=== PATIENT | male | born 1995 | race Caucasian/White ===

== ENCOUNTER 2020-07-01 16:04 | Outpatient (REF) | payer MEDICAID, SELFPAY ==
[2020-07-02 11:31] LABS: SARS COV2 PCR INHOUSE NEGATIVE (Negative)
== END 2020-07-01 16:05 | disposition home or self-care (01) ==
LOC: HO.LAB 16:04
PROVIDERS: Visit Provider Internal Medicine
DX: Z20.822 Contact with and (suspected) exposure to COVID-19 (principal)
CPT/HCPCS: C9803; U0003

== ENCOUNTER 2020-07-05 14:08 | Outpatient (REF) | payer MEDICAID, SELFPAY ==
[2020-07-06 11:22] LABS: SARS COV2 PCR INHOUSE POSITIVE (Negative)
== END 2020-07-05 14:09 | disposition home or self-care (01) ==
LOC: HO.LAB 14:08
PROVIDERS: Visit Provider Internal Medicine
DX: Z20.822 Contact with and (suspected) exposure to COVID-19 (principal)
CPT/HCPCS: C9803; U0003

== ENCOUNTER 2020-07-15 15:50 | Outpatient (REF) | payer MEDICAID, SELFPAY | END 2020-07-15 15:51 | disposition home or self-care (01) | LOC: HO.LAB 15:50 | PROVIDERS: Visit Provider Internal Medicine | DX: Z20.822 Contact with and (suspected) exposure to COVID-19 (principal) | CPT/HCPCS: C9803; U0003; U0005 ==

== ENCOUNTER 2021-01-26 14:08 | Outpatient (REF) | payer MEDICAID, SELFPAY ==
[2021-01-26 16:26] LABS: MANUAL DIFF FLAG NO
[2021-01-26 16:30] LABS: Basophils Percent Auto 0.5 % (0-2); Eosinophils Absolute Auto 0.3 X10*3/uL (0.0-0.4); Eosinophils Percent Auto 3.4 % (0-4); Hematocrit 44.8 % (42-52); Imm Gran Abs Auto 0.02 X10*3/uL (0.00-0.03); Imm Gran Pct Auto 0.2 % (0.0-0.4); Lymphocytes Absolute Auto 2.2 X10*3/uL (1.2-4.9); Lymphocytes Percent Auto 25.4 % (20-40); Mean Corpuscular HGB Conc 33.5 g/dl (31.0-36.0); Mean Corpuscular Hemoglobin 30.2 pg (27.0-33.0); Mean Corpuscular Volume 90.1 fL (80-98); Mean Platelet Volume 12.3 fL (9.4-12.4); Monocytes Absolute Auto 0.6 X10*3/uL (0.1-1.2); Monocytes Percent Auto 7.1 % (2-11); Neutrophils Absolute Auto 5.6 X10*3/uL (2.0-8.3); Neutrophils Percent Auto 63.4 % (45-73); Platelet Count 217 X10*3/uL (160-400); Red Blood Count 4.97 X10*6/uL (4.60-5.80); Red Cell Distribution Width 13.2 % (11.0-16.0); White Blood Count 8.8 X10*3/uL (4.8-10.8)
[2021-01-26 16:53] LABS: Anion Gap 12 (12-20); Blood Urea Nitrogen 11 mg/dL (9-16); Calcium 9.3 mg/dL (8.4-10.2); Carbon Dioxide 26 mmol/L (22-29); Chloride 106 mmol/L (96-108); Estimated Glomerular Filt Rate > 60; Glucose Fasting 78 mg/dL (60-99); Sodium 140 mmol/L (135-145)
[2021-01-26 17:17] LABS: TSH reflex Free T4 0.79 uIU/mL (0.32-4.0); Vitamin D 25-OH Total 13.4 ng/mL (>30)
[2021-01-26 17:27] LABS: Folate 15.9 ng/mL (> or = 4.0); Vitamin B12 430 pg/mL (200-900)
[2021-01-31 03:50] LABS: SARS COV2 IgG Negative (Negative)
== END 2021-01-26 14:09 | disposition home or self-care (01) ==
LOC: HO.HMGCLDS 14:08
PROVIDERS: PCP Internal Medicine; Visit Provider Internal Medicine
DX: G47.19 Other hypersomnia (principal); I10 Essential (primary) hypertension; R06.83 Snoring; Z86.16 Personal history of COVID-19
CPT/HCPCS: 36415; 80048; 82306; 82607; 82746; 84443; 85025; 86769

== ENCOUNTER 2021-08-05 07:31 | Emergency (ER) | payer MEDICAID, SELFPAY ==
[2021-08-05 07:52] VITALS: BP 124/59; PULSE 69; RESP 16; TEMP 37.4; O2SAT 97; BMI 27.3
--- NOTE | 2021-08-05 08:44 | ED_ITS ---
HPI - Nausea/Vomiting/Diarrhea General Chief complaint: Nausea/Vomiting/Diarrhea Stated complaint: Vomiting Time Seen by Provider: 08/05/21 08:38 History of Present Illness HPI Narrative: Patient is 25 years old presents today with having nausea vomiting generalized malaise. The symptom has been ongoing for the last 3 days. No cough, no congestion or upper respiratory symptoms. No diaphoresis. No diarrhea. No previous history of abdominal surgery. Positive abdominal pain mainly over the epigastric area. No radiation of the pain. Related Data Previous Rx's Medication Instructions Recorded cholecalciferol (vitamin D3) 1,250 1,250 mcg PO QWEEK 90 Days #13 tab 01/27/21 mcg (50,000 unit) tablet ondansetron 4 mg disintegrating 4 mg PO TID PRN 5 Days #10 tab 08/05/21 tablet Allergies Allergy/AdvReac Type Severity Reaction Status Date / Time No Known Allergies Allergy Verified 02/06/21 22:53 [No Known Allergies*] Review of Systems Review of Systems: Positive nausea vomiting Yes all other systems are reviewed and are negative PMFSH Past Medical History Attestation statement: The following information was validated with the patient. Medical History Cigarette smoker one half pack a day or less COVID-19 vaccination refused Excessive daytime sleepiness Excessive sleepiness while driving History of COVID-19 Snoring Family History Family History Father Substance use disorder HTN (hypertension) Paternal Grandfather Throat cancer Social History Social History Housing: Apartment Alcohol intake: former Patient Tobacco Use Status: Current everyday Tobacco user Cigarettes Per Day: 10 Years Smoked: 12 Advance Directives: No Advance Directives Information Provided: No service: No Current occupational status: unemployed Physical Exam Vital Signs: Vital Signs: Last Vital Signs Temp 99.3 F 08/05/21 07:52 Pulse 69 08/05/21 07:52 Resp 16 08/05/21 07:52 BP 124/59 L 08/05/21 07:52 Pulse Ox 97 08/05/21 07:52 BMI result Body Mass Index 27.3 Appearance: Alert. Oriented X3. No acute distress. Eyes: Pupils equal, round and reactive to light. ENT: Pharynx normal. Neck: Normal inspection. Neck supple. No lymph nodes noted. No crepitus CVS: Normal heart rate and rhythm. Pulses normal. Normal S1 and S2 Respiratory: No respiratory distress. Breath sounds normal. No Wheezing. No rales Abdomen: Soft and nontender. No rigidity. No distention. good BS x4 Skin: Skin warm and dry. Normal skin color. Normal skin turgor. Extremities: No lower extremity edema. Neurovascular intact to all extremities. No Lacerations. No Rash Neuro: Oriented X 3. No motor deficit. No sensory deficit. Moving all extermities. No slurred speech MDM - Nausea/Vomiting/Diarrhea MDM Narrative Medical decision making narrative: Positive nausea vomiting diarrhea. Symptom improved with treatment. Buffyfran was given emergency department repeat abdominal exam is soft nontender. Will discharge patient home. Currently in stable condition. [place] the risk of appendicitis is low given the repeat abdominal exam is soft. No right lower quadrant tenderness white count is normal. History not suggestive of obstruction as patient has no history of abdominal surgery past Medical Records Attestation: I reviewed the patient's medical records. Lab Data Attestation: I reviewed the patient's lab results. Result diagrams: 08/05/21 08:50 08/05/21 08:50 Labs: Lab Results 08/05/21 08/05/21 08/05/21 Range/Units 08:50 08:50 08:50 WBC 8.3 (4.8-10.8) X10*3/uL RBC 4.82 (4.60-5.80) X10*6/uL Hgb 14.3 (14.0-18.0) g/dl Hct 43.0 (42.0-52.0) % MCV 89.2 (80.0-98.0) fL MCH 29.7 (27.0-33.0) pg MCHC 33.3 (31.0-36.0) g/dl RDW 12.6 (11.0-16.0) % Plt Count 216 (160-400) X10*3/uL MPV 11.7 (9.4-12.4) fL Immature Gran % (Auto) 0.2 (0.0-0.4) % Neut % (Auto) 67.9 (45-73) % Lymph % (Auto) 24.1 (20-40) % Ashley % (Auto) 5.9 (2-11) % Eos % (Auto) 1.3 (0-4) % Baso % (Auto) 0.6 (0-2) % Lymph # (Auto) 2.0 (1.2-4.9) X10*3/uL Ashley # (Auto) 0.5 (0.1-1.2) X10*3/uL Eos # (Auto) 0.1 (0.0-0.4) X10*3/uL Baso # (Auto) 0.1 (0.0-0.2) X10*3/uL Abs Immat Gran (auto) 0.02 (0.00-0.03) X10*3/uL Absolute Neuts (auto) 5.6 (2.0-8.3) x10*3/uL Absolute Nucleated RBC 0.000 (0.0-0.012) X10*3/uL Nucleated RBC % (auto) 0.0 (0.0-0.2) /100WBC Sodium 139 (135-145) mmol/L Potassium 3.8 (3.3-5.1) mmol/L Chloride 108 (96-108) mmol/L Carbon Dioxide 25 (22-29) mmol/L Anion Gap 10 L (12-20) BUN 10 (9-16) mg/dL Creatinine 0.84 (0.5-1.4) mg/dL Estim Creat Clear Calc 128.9 Estimated GFR > 60 Random Glucose 106 (60-115) mg/dL Calcium 9.4 (8.4-10.2) mg/dL Total Bilirubin 0.2 (0.0-1.0) mg/dL Direct Bilirubin < 0.2 (0.0-0.5) mg/dL AST 17 (5-37) U/L ALT 17 (0-40) U/L Alkaline Phosphatase 64 (39-117) U/L Total Protein 7.4 (6.5-8.0) g/dL Albumin 4.0 (3.5-5.0) g/dL Lipase 24 (8-78) U/L Urine Color Urine Appearance Urine pH (5.0-8.0) Ur Specific [place] (1.005-1.025) Urine Protein (NEG-TRACE) MG/DL Urine Glucose (UA) (NEG) MG/DL Urine Ketones (NEG) MG/DL Urine Blood (NEG) Urine Nitrite (NEG) Ur Leukocyte Esterase (NEG) COVID-19 (KAYLYNN) Negative (Negative) COVID-19 Clin Com See Note 08/05/21 Range/Units 09:06 WBC (4.8-10.8) X10*3/uL RBC (4.60-5.80) X10*6/uL Hgb (14.0-18.0) g/dl Hct (42.0-52.0) % MCV (80.0-98.0) fL MCH (27.0-33.0) pg MCHC (31.0-36.0) g/dl RDW (11.0-16.0) % Plt Count (160-400) X10*3/uL MPV (9.4-12.4) fL Immature Gran % (Auto) (0.0-0.4) % Neut % (Auto) (45-73) % Lymph % (Auto) (20-40) % Ashley % (Auto) (2-11) % Eos % (Auto) (0-4) % Baso % (Auto) (0-2) % Lymph # (Auto) (1.2-4.9) X10*3/uL Ashley # (Auto) (0.1-1.2) X10*3/uL Eos # (Auto) (0.0-0.4) X10*3/uL Baso # (Auto) (0.0-0.2) X10*3/uL Abs Immat Gran (auto) (0.00-0.03) X10*3/uL Absolute Neuts (auto) (2.0-8.3) x10*3/uL Absolute Nucleated RBC (0.0-0.012) X10*3/uL Nucleated RBC % (auto) (0.0-0.2) /100WBC Sodium (135-145) mmol/L Potassium (3.3-5.1) mmol/L Chloride (96-108) mmol/L Carbon Dioxide (22-29) mmol/L Anion Gap (12-20) BUN (9-16) mg/dL Creatinine (0.5-1.4) mg/dL Estim Creat Clear Calc Estimated GFR Random Glucose (60-115) mg/dL Calcium (8.4-10.2) mg/dL Total Bilirubin (0.0-1.0) mg/dL Direct Bilirubin (0.0-0.5) mg/dL AST (5-37) U/L ALT (0-40) U/L Alkaline Phosphatase (39-117) U/L Total Protein (6.5-8.0) g/dL Albumin (3.5-5.0) g/dL Lipase (8-78) U/L Urine Color YELLOW Urine Appearance CLEAR Urine pH 6.0 (5.0-8.0) Ur Specific [place] 1.020 (1.005-1.025) Urine Protein NEG (NEG-TRACE) MG/DL Urine Glucose (UA) NEG (NEG) MG/DL Urine Ketones NEG (NEG) MG/DL Urine Blood NEG (NEG) Urine Nitrite NEG (NEG) Ur Leukocyte Esterase NEG (NEG) COVID-19 (KAYLYNN) (Negative) COVID-19 Clin Com Discharge Plan Discharge Clinical Impression: Vomiting Patient Disposition: Home, Self-Care Instructions: Acute Nausea and Vomiting (ED) Prescriptions: New ondansetron 4 mg tablet,disintegrating 4 mg PO TID PRN (Reason: nausea and vomiting) 5 Days Qty: 10 0RF No Action cholecalciferol (vitamin D3) 1,250 mcg (50,000 unit) tablet 1,250 mcg PO QWEEK 90 Days Qty: 13 0RF Referrals: Ambar Underwood MD [Primary Care Provider] - Stand Alone Forms: Work/School Release
[2021-08-05 08:55] LABS: MANUAL DIFF FLAG NO
[2021-08-05 09:00] LABS: Basophils Absolute Auto 0.1 X10*3/uL (0.0-0.2); Basophils Percent Auto 0.6 % (0-2); Eosinophils Absolute Auto 0.1 X10*3/uL (0.0-0.4); Eosinophils Percent Auto 1.3 % (0-4); Hemoglobin 14.3 g/dl (14.0-18.0); Imm Gran Abs Auto 0.02 X10*3/uL (0.00-0.03); Imm Gran Pct Auto 0.2 % (0.0-0.4); Lymphocytes Percent Auto 24.1 % (20-40); Mean Corpuscular HGB Conc 33.3 g/dl (31.0-36.0); Mean Corpuscular Hemoglobin 29.7 pg (27.0-33.0); Mean Corpuscular Volume 89.2 fL (80.0-98.0); Mean Platelet Volume 11.7 fL (9.4-12.4); Monocytes Absolute Auto 0.5 X10*3/uL (0.1-1.2); Monocytes Percent Auto 5.9 % (2-11); Neutrophils Absolute Auto 5.6 x10*3/uL (2.0-8.3); Neutrophils Percent Auto 67.9 % (45-73); Platelet Count 216 X10*3/uL (160-400); Red Blood Count 4.82 X10*6/uL (4.60-5.80); Red Cell Distribution Width 12.6 % (11.0-16.0); White Blood Count 8.3 X10*3/uL (4.8-10.8)
[2021-08-05] MEDS: ondansetron HCL 4 MG/2 ML VIAL IVPUSH (09:02)
[2021-08-05] MEDS: 0.9 % Sodium Chloride 1,000 ML 999 ML IV (09:02)
[2021-08-05 09:16] LABS: Alanine Aminotransferase 17 U/L (0-40); Alkaline Phosphatase 64 U/L (39-117); Anion Gap 10 (12-20); Aspartate Amino Transferase 17 U/L (5-37); Bilirubin Direct < 0.2 mg/dL (0.0-0.5); Bilirubin Total 0.2 mg/dL (0.0-1.0); Blood Urea Nitrogen 10 mg/dL (9-16); Calcium 9.4 mg/dL (8.4-10.2); Carbon Dioxide 25 mmol/L (22-29); Chloride 108 mmol/L (96-108); Creatinine Clr Calc Pharmacy 128.9; Estimated Glomerular Filt Rate > 60; Glucose Random 106 mg/dL (60-115); Lipase 24 U/L (8-78); Potassium 3.8 mmol/L (3.3-5.1); Sodium 139 mmol/L (135-145); Total Protein 7.4 g/dL (6.5-8.0)
[2021-08-05 09:21] LABS: Appearance Urine CLEAR; Color Urine YELLOW; Glucose Urine UA NEG (NEG); Leukocyte Esterase Urine NEG (NEG); Nitrite Urine NEG (NEG); Urine Blood NEG (NEG); Urine Ketones NEG (NEG); Urine Protein NEG (NEG-TRACE)
[2021-08-05 09:22] LABS: COVID-19 Test Negative (Negative)
== END 2021-08-05 10:20 | disposition home or self-care (01) ==
PROVIDERS: Emergency Provider Emergency Medicine Emergency Medical Services; PCP Internal Medicine
DX: R11.10 Vomiting, unspecified (principal); F17.210 Nicotine dependence, cigarettes, uncomplicated; Z20.822 Contact with and (suspected) exposure to COVID-19
CPT/HCPCS: 36415; 80048; 80076; 81003; 83690; 85025; 87635; 96361; 96374; 99284; J2405

== ENCOUNTER 2022-06-29 07:30 | Emergency (ER) | payer MEDICAID, SELFPAY ==
[2022-06-29 07:43] VITALS: BP 131/70; PULSE 75; RESP 116; TEMP 36.8; O2SAT 98; BMI 26.6
[2022-06-29 08:10] LABS: IDNOW Serial# 08D9AD1C; Strep A Nucleic Acid Negative (Negative)
[2022-06-29 08:12] LABS: COVID-19 Test Negative (Negative); IDNOW Serial# BCCEAD1C
--- NOTE | 2022-06-29 08:31 | ED_ITS ---
HPI - General Adult General Chief complaint: Upper Respiratory Symptoms Stated complaint: sore throat Time Seen by Provider: 06/29/22 08:02 Source: patient Mode of arrival: ambulatory Limitations: no limitations History of Present Illness HPI narrative: 26-year-old male presents with sore throat. Symptoms started 3-4 days ago. Describes symptoms as severe. They are worse with swelling. Denies any difficulty breathing. He feels the gland on his left side of his neck. Pain is mostly left-sided does not radiate. He has had no fevers or chills. No cough or mucus production. No runny nose. Related Data Previous Rx's Medication Instructions Recorded cholecalciferol (vitamin D3) 1,250 1,250 mcg PO QWEEK 90 days #13 tabs 01/27/21 mcg (50,000 unit) tablet ondansetron 4 mg disintegrating 4 mg PO TID PRN nausea and 08/05/21 tablet vomiting 5 days #10 tabs amoxicillin 875 mg tablet 875 mg PO Q12H #20 tabs 06/29/22 Allergies Allergy/AdvReac Type Severity Reaction Status Date / Time No Known Allergies Allergy Verified 02/06/21 22:53 [No Known Allergies*] [facility] Past Medical History Medical History Cigarette smoker one half pack a day or less COVID-19 vaccination refused Excessive daytime sleepiness Excessive sleepiness while driving History of COVID-19 Snoring Family History Family History Father Substance use disorder HTN (hypertension) Paternal Grandfather Throat cancer Social History Social History Housing: Apartment Alcohol intake: former Patient Tobacco Use Status: Current everyday Tobacco user Cigarettes Per Day: 10 Years Smoked: 12 Advance Directives: No service: No Current occupational status: unemployed Physical Exam ED Vital Signs: Vital Signs - 24 hr 06/29/22 07:43 Temperature 98.2 F Pulse Rate 75 Respiratory Rate 116 H Blood Pressure 131/70 Pulse Oximetry 98 Oxygen Delivery Method Room Air BMI result Body Mass Index 26.6 GEN: Well developed, no acute distress, alert, oriented HEENT: Normocephalic, atraumatic, normal external ears, nose appears normal, edematous and erythematous changes to the oropharynx. There is no tonsillar enlargement or exudate Eyes: Normal to appearance Neck: Supple, scattered left-sided sub cm anterior neck lymphadenopathy Respiratory: Talks in complete sentences, no respiratory distress, clear to auscultation bilaterally Cardiovascular: Regular rate and rhythm, no murmurs rubs or gallops Abdomen: Soft, nontender, nondistended, no guarding, no rebound Back: No CVA tenderness Extremities: No clubbing cyanosis or edema Neurologic: No focal neurologic deficits, cranial nerves 2-12 intact, strength is 5/5 bilaterally, gait normal Skin: No rash Course Course Course Narrative: 26-year-old male presents with sore throat. No has no other significant symptoms. Most likely diagnosis is strep pharyngitis. Will obtain throat culture, start antibiotics. Analgesics as needed. Medical Decision Making Medical Decision Making [facility] Narrative: 26-year-old male with no history of immunocompromise status, he is nontoxic appearing. Appears euvolemic. There is no evidence intravenous trismus or airway compromise. He is able to tolerate oral intake. His history is most likely suspicious for acute strep pharyngitis. Doubt peritonsillar abscess, retropharyngeal abscess, Brandt's angina, epiglottitis, tracheitis, EBV or HIV. Will treat patient with oral antibiotics and follow up as needed. Differential Diagnosis Differential Diagnoses: The differential diagnosis associated with the presentation includes (Strep throat, viral pharyngitis, EBV, HIV, tracheitis, epiglottitis, RPA, AMUSEMENT OR RECREATION CARD CHECKER) Lab Data [facility] Lab Attestation statement: I reviewed the patient's lab results. Labs: Lab Results 06/29/22 06/29/22 Range/Units 07:52 07:52 COVID-19 (AKYLYNN) Negative (Negative) COVID-19 Clin Com See Note S. pyogenes GrpA SANTI Negative (Negative) Tests considered The following testing was considered but not selected: CT neck Prescription Management I considered prescription management with: Pain Medication and Antibiotic Discharge Plan Discharge Clinical Impression: Pharyngitis Patient Disposition: Home, Self-Care Instructions: Pharyngitis (ED) Prescriptions: New amoxicillin 875 mg tablet 875 mg PO Q12H Qty: 20 0RF No Action cholecalciferol (vitamin D3) 1,250 mcg (50,000 unit) tablet 1,250 mcg PO QWEEK 90 Days Qty: 13 0RF ondansetron 4 mg tablet,disintegrating 4 mg PO TID PRN (Reason: nausea and vomiting) 5 Days Qty: 10 0RF Referrals: Ambar Underwood MD [Primary Care Provider] - 3 days
[2022-06-29 08:41] VITALS: BP 123/59; PULSE 72; RESP 16; O2SAT 98
[2022-06-29] MEDS: Amoxicillin 500 MG CAPSULE PO (08:57)
== END 2022-06-29 09:04 | disposition home or self-care (01) ==
PROVIDERS: Emergency Provider Emergency Medicine; PCP Internal Medicine
DX: J02.9 Acute pharyngitis, unspecified (principal); Z20.822 Contact with and (suspected) exposure to COVID-19; Z20.828 Contact with and (suspected) exposure to other viral communicable diseases; Z79.899 Other long term (current) drug therapy
CPT/HCPCS: 87635; 87651; 99283

== ENCOUNTER 2022-06-29 21:24 | Emergency (ER) | payer MEDICAID, SELFPAY ==
[2022-06-29 21:26] VITALS: BP 118/69; PULSE 85; RESP 18; TEMP 37.6; O2SAT 95; BMI 26.4
--- NOTE | 2022-06-29 23:03 | PC.NURSE ---
called to [facility], no answer
== END 2022-06-29 23:57 | disposition left against medical advice (07) ==
PROVIDERS: Emergency Provider Emergency Medicine; PCP Internal Medicine
DX: J02.9 Acute pharyngitis, unspecified (principal)
CPT/HCPCS: 99281

== ENCOUNTER 2022-07-01 06:53 | Observation (INO) | payer MEDICAID, SELFPAY ==
--- NOTE | ~2022-07-01 | CT_ITS ---
EXAMINATION: CT SOFT TISSUE NECK WITH CONTRAST CLINICAL INFORMATION: Rule out left peritonsillar abscess COMPARISON: None. TECHNIQUE: Following the administration of 60 mL of Omnipaque 350 intravenous contrast, helical imaging was performed in the axial plane with generation of coronal and sagittal reformatted images. This CT examination was performed using dose optimization techniques as appropriate, variously including the following: *Automated exposure control. *Adjustment of mA and/or kV according to patient size (this includes techniques or standardized protocols for targeted exams where dose is matched to indication/reason for exam; i.e. extremities or head). *Use of iterative reconstruction technique. DLP: 695.86 mGy-cm mGy-cm. FINDINGS: Nasopharynx/skull base: The fat planes of the skull base and soft tissues of the nasopharynx are unremarkable. The paranasal sinuses and mastoid air cells are well aerated. The temporomandibular joints are normal. Suprahyoid neck: The oral cavity and bilateral salivary gland tissues are unremarkable. There is enlargement and hypodensity of the superior left palatine tonsil with edema extending to involve the left lateral nasopharyngeal wall, left lateral oropharyngeal wall, epiglottis, and left aryepiglottic fold with effacement of the left piriform sinus. There is rightward deviation of the oropharyngeal airway which is mildly narrowed. No discrete rim-enhancing fluid density collection is identified to suggest a well-formed tonsillar or peritonsillar abscess. Infrahyoid neck: The hypopharynx and larynx are unremarkable. There is a subcentimeter collection of gas along the right tracheoesophageal groove at the level of thoracic inlet, likely representing a tracheal diverticulum. No aerodigestive tract mass. Thyroid: The thyroid gland is normal. Lymph nodes: There is no cervical chain lymphadenopathy. Prominent but nonpathologically enlarged bilateral cervical lymph nodes are likely reactive. Lung apices: The partially visualized lung apices are clear. Vascular structures: No hemodynamically significant stenosis, dissection, or occlusion. Osseous structures: The osseous structures are intact without suspicious focal lesion. Mild degenerative disc disease with endplate osteophytosis at multiple levels, most notably C6-C7. Other: The imaged portions of the brain parenchyma are unremarkable. CT/CT soft tissue neck w IV con IMPRESSION: 1. Enlargement and hypodensity of the left palatine tonsil with extensive mucosal edema extending throughout the left pharynx and involving the epiglottis and left aryepiglottic fold. Rightward deviation of the oropharyngeal airway which is mildly narrowed. No discrete rim-enhancing fluid density collection is identified to suggest a drainable tonsillar or peritonsillar abscess. Hypodensity within the left palatine tonsil may reflect edema and/or phlegmon/developing abscess. 2. 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
[2022-07-01 07:19] VITALS: BP 139/73; PULSE 81; RESP 16; TEMP 37.1; O2SAT 98; BMI 26.4
--- NOTE | 2022-07-01 08:17 | ED.URI ---
HPI - URI/Sore Throat General Chief Complaint: Upper Respiratory Symptoms Stated Complaint: Sore throat Time Seen by Provider: 07/01/22 08:06 Source: patient Mode of arrival: ambulatory Limitations: no limitations History of Present Illness HPI Narrative: 26-year-old male with history of tobacco smoking who presents to the ER with complaints of 4 days of sore throat. Seen here on June 29 and had COVID and strep testing which were negative. Diagnosis pharyngitis and sent home on amoxicillin. Patient reports he has taken 2 doses of amoxicillin. Last night he developed a fever of 101 with increased difficulty swallowing and sore throat. MD elicited complaint: fever and sore throat Related Data Previous Rx's Medication Instructions Recorded amoxicillin 875 mg tablet 875 mg PO Q12H #20 tabs 06/29/22 Allergies Allergy/AdvReac Type Severity Reaction Status Date / Time No Known Allergies Allergy Verified 02/06/21 22:53 [No Known Allergies*] Review of Systems Review of Systems: Yes all other systems are reviewed and are negative Constitutional: Constitutional: Reports no additional constitutional complaints, Denies body ache(s), Denies chills, Reports fever(s), Denies headache(s) and Denies weakness Eyes: Eyes: Reports no additional eye complaints and Denies change in vision ENT: Reports system reviewed and no additional complaints, except as documented, Denies dizziness, Denies headache(s), Denies nasal congestion, Denies nasal discharge, Denies neck pain and Reports sore throat Cardiovascular: Cardiovascular: Reports no additional cardiovascular complaints, Denies chest pain, Denies leg edema and Denies dyspnea Respiratory: Respiratory: Reports no additional respiratory complaints, Denies cough and Denies dyspnea Gastrointestinal: Gastrointestinal: Reports no additional gastrointestinal complaints, Denies abdominal pain, Denies diarrhea, Denies nausea and Denies vomiting Genitourinary: Genitourinary: Denies urinary incontinence Musculoskeletal: Musculoskeletal: Reports no additional musculoskeletal complaints, Denies back pain, Denies arthralgias, Denies joint swelling, Denies neck pain, Denies numbness and Denies tingling Integumentary/Breasts: Skin/Breast: Reports system reviewed and no additional complaints, except as docu and Denies rash Neurologic: Reports system reviewed and no additional complaints, except as documented, Denies Abnormal speech present, Denies dizziness, Denies headache(s), Denies numbness, Denies tingling and Denies weakness [facility] Past Medical History Attestation statement: The following information was validated with the patient. Source: old records reviewed and nursing notes reviewed Medical History Cigarette smoker one half pack a day or less COVID-19 vaccination refused Excessive daytime sleepiness Excessive sleepiness while driving History of COVID-19 Snoring Family History Family History Father Substance use disorder HTN (hypertension) Paternal Grandfather Throat cancer Social History Social History Housing: Apartment Alcohol intake: former Patient Tobacco Use Status: Current everyday Tobacco user Cigarettes Per Day: 10 Years Smoked: 12 Advance Directives: No Advance Directives Information Provided: No service: No Current occupational status: unemployed Physical Exam Vital Signs: Vital Signs: Last Vital Signs Temp 98.7 F 07/01/22 07:19 Pulse 72 07/01/22 11:38 Resp 16 07/01/22 11:38 BP 119/53 L 07/01/22 11:38 Pulse Ox 99 07/01/22 11:38 O2 Del Method Room Air 07/01/22 11:38 BMI result Body Mass Index 26.4 Const: General: cooperative, healthy appearing, comfortable and no acute distress Orientation/consciousness: patient oriented x3 Limitations: no limitations HEENT: Other: Patient tolerating secretions with no difficulty, no trismus Head: Yes normal to inspection Ears: hearing grossly normal bilaterally and TM's normal bilaterally General nose exam: Normal external nose present Face and sinus: Yes normal facial exam Mouth: Normal oral and palatal mucosa present Throat: Yes posterior oropharynx normal, Yes uvula midline and Yes other (Bilateral tonsillar erythema, exudate, swelling left greater than right) Eyes: General: appearance normal, both eyes and all related structures Pupils: Equal, round and reactive pupils present Neck: Neck: Yes normal visual inspection, Yes full ROM, Yes no lymphadenopathy and Yes no meningeal signs Chest: Chest palpation & inspection: normal inspection of the chest Resp: Effort & Inspection: normal respiratory effort Auscultation: clear to auscultation bilaterally Cardio: Rate: regular rate Rhythm: regular rhythm Peripheral pulses: Peripheral pulses 2+ throughout GI: Inspection: Yes normal to inspection Palpation (GI): Soft to palpation and nontender Auscultation: normal bowel sounds Back/Spine/Pelvis: Thoracic/Lumbar Spine: thoracic and lumbar spine normal to inspection Skin: General skin exam: no rashes or lesions noted Neuro: General: patient oriented x3, no meningeal signs, no focal motor deficits and normal sensation to monofilament Cranial nerves: Yes Equal, round and reactive pupils present Cognition (Neuro): normal cognition Speech: No Abnormal speech present Gait exam (Neuro): Normal gait present Motor exam (neuro): 5/5 motor strength present throughout Extrem: General: Yes normal to inspection Medications Administered Discontinued Medications Generic Name Dose Route Start Last Admin Trade Name Freq PRN Reason Stop Dose Admin Dexamethasone Sodium Phosphate 10 mg 07/01/22 08:16 07/01/22 09:16 Dexamethasone Sod Phosphate 10 Mg/Ml Vial IVPUSH 07/01/22 08:17 10 mg ONCE ONE Administration Sodium Chloride 1,000 mls @ 999 mls/hr 07/01/22 08:15 07/01/22 12:20 Ns IV 07/01/22 09:15 Infused .Q1H1M STA Infusion Clindamycin Phosphate 600 mg in 50 mls @ 100 mls/hr 07/01/22 08:17 07/01/22 12:20 Cleocin IV 07/01/22 08:46 Infused ONCE ONE Infusion Iohexol 60 ml 07/01/22 10:37 07/01/22 10:38 Iohexol 350 Mg/Ml 100 Ml Infus..Btl IV 07/01/22 10:38 60 ml ONCE ONE Administration Ketorolac Tromethamine 30 mg 07/01/22 08:16 07/01/22 09:16 Ketorolac Tromethamine 30 Mg/Ml Vial IVPUSH 07/01/22 08:17 30 mg ONCE ONE Administration Medical Decision Making Medical Decision Making [facility] Narrative: [id number] male here with 4 days of sore throat which worsened last evening with fever and difficulty swallowing. Patient currently being treated for strep pharyngitis with amoxicillin and has taken a total of 2 doses. On exam patient with bilateral tonsillar swelling, erythema, exudate left greater than right. Patient tolerating secretions with no trismus. No lymphadenopathy or meningeal signs. Vitals are stable. Patient may have peritonsillar abscess Will obtain CT neck with IV contrast, labs, repeat COVID/flu/RSV/strep screen, obtain mono screen At this time infection suspected. Patient will receive Decadron, Toradol, antibiotics Differential Diagnosis Differential Diagnoses: The differential diagnosis associated with the presentation includes Strep pharyngitis, peritonsillar abscess RPA, Brandt's angina, EBV Admission/Observation Consideration of admission/observation: Escalation of care including admission/observation considered Patient with CT that is not showing discrete fluid collection to suggest peritonsillar abscess or need for I&D. Patient would likely benefit from IV fluids, antibiotics, Decadron and admission with observation. Unfortunately we do not have ENT coverage here at [facility]. I did call and speak to Dr. reeves who is the on-call ENT for [facility]. He recommended continuing IV fluids, antibiotics, Decadron, supportive care. There is no current ENT intervention. He would be happy to accept the patient however [facility] is currently closed for transfers. He does not feel the patient needs any ENT intervention and can be managed here at [facility]. He did recommend transition the patient to clindamycin 300 mg q.i.d. once patient is feeling improved Consult Healthcare Provider Management of the patient was discussed with: Hospitalist I spoke to Dr. Santoyo who accepted admission of patient Lab Data MDM Lab Attestation statement: I reviewed the patient's lab results. 07/01/22 08:37 07/01/22 08:37 Labs: Lab Results 07/01/22 07/01/22 07/01/22 Range/Units 08:37 08:37 08:37 WBC (4.8-10.8) X10*3/uL RBC (4.60-5.80) X10*6/uL Hgb (14.0-18.0) g/dl Hct (42.0-52.0) % MCV (80.0-98.0) fL MCH (27.0-33.0) pg MCHC (31.0-36.0) g/dl RDW (11.0-16.0) % Plt Count (160-400) X10*3/uL MPV (9.4-12.4) fL Immature Gran % (Auto) (0.0-0.4) % Neut % (Auto) (45-73) % Lymph % (Auto) (20-40) % [place] % (Auto) (2-11) % Eos % (Auto) (0-4) % Baso % (Auto) (0-2) % Lymph # (Auto) (1.2-4.9) X10*3/uL [place] # (Auto) (0.1-1.2) X10*3/uL Eos # (Auto) (0.0-0.4) X10*3/uL Baso # (Auto) (0.0-0.2) X10*3/uL Abs Immat Gran (auto) (0.00-0.03) X10*3/uL Absolute Neuts (auto) (2.0-8.3) x10*3/uL Absolute Nucleated RBC (0.0-0.012) X10*3/uL Nucleated RBC % (auto) (0.0-0.2) /100WBC Sodium (135-145) mmol/L Potassium (3.3-5.1) mmol/L Chloride (96-108) mmol/L Carbon Dioxide (22-29) mmol/L Anion Gap (12-20) BUN (9-16) mg/dL Creatinine (0.5-1.4) mg/dL Estim Creat Clear Calc Estimated GFR Random Glucose (60-115) mg/dL Lactic Acid (0.5-2.0) mmol/L Calcium (8.4-10.2) mg/dL Total Bilirubin (0.0-1.0) mg/dL Direct Bilirubin (0.0-0.5) mg/dL AST (5-37) U/L ALT (0-40) U/L Alkaline Phosphatase (39-117) U/L Total Protein (6.5-8.0) g/dL Albumin (3.5-5.0) g/dL Monoscreen Negative (Negative) Influenza Type A (PCR) NEGATIVE (Negative) Influenza Type B (PCR) NEGATIVE (Negative) RSV RNA Qual (PCR) NEGATIVE (Negative) SARS-CoV-2 RNA (RT-PCR) NEGATIVE (Negative) S. pyogenes GrpA SANTI Negative (Negative) 07/01/22 07/01/22 07/01/22 Range/Units 08:37 08:37 08:37 WBC 18.5 H (4.8-10.8) X10*3/uL RBC 4.94 (4.60-5.80) X10*6/uL Hgb 14.9 (14.0-18.0) g/dl Hct 44.2 (42.0-52.0) % MCV 89.5 (80.0-98.0) fL MCH 30.2 (27.0-33.0) pg MCHC 33.7 (31.0-36.0) g/dl RDW 12.4 (11.0-16.0) % Plt Count 226 (160-400) X10*3/uL MPV 11.8 (9.4-12.4) fL Immature Gran % (Auto) 0.4 (0.0-0.4) % Neut % (Auto) 80.0 H (45-73) % Lymph % (Auto) 11.7 L (20-40) % [place] % (Auto) 7.4 (2-11) % Eos % (Auto) 0.2 (0-4) % Baso % (Auto) 0.3 (0-2) % Lymph # (Auto) 2.2 (1.2-4.9) X10*3/uL [place] # (Auto) 1.4 H (0.1-1.2) X10*3/uL Eos # (Auto) 0.0 (0.0-0.4) X10*3/uL Baso # (Auto) 0.1 (0.0-0.2) X10*3/uL Abs Immat Gran (auto) 0.08 H (0.00-0.03) X10*3/uL Absolute Neuts (auto) 14.8 H (2.0-8.3) x10*3/uL Absolute Nucleated RBC 0.000 (0.0-0.012) X10*3/uL Nucleated RBC % (auto) 0.0 (0.0-0.2) /100WBC Sodium 140 (135-145) mmol/L Potassium 3.6 (3.3-5.1) mmol/L Chloride 103 (96-108) mmol/L Carbon Dioxide 22 (22-29) mmol/L Anion Gap 19 (12-20) BUN 12 (9-16) mg/dL Creatinine 0.78 (0.5-1.4) mg/dL Estim Creat Clear Calc 137.6 Estimated GFR > 60 Random Glucose 93 (60-115) mg/dL Lactic Acid 0.6 (0.5-2.0) mmol/L Calcium 9.4 (8.4-10.2) mg/dL Total Bilirubin 1.1 H (0.0-1.0) mg/dL Direct Bilirubin 0.3 (0.0-0.5) mg/dL AST 11 (5-37) U/L ALT 8 (0-40) U/L Alkaline Phosphatase 65 (39-117) U/L Total Protein 7.8 (6.5-8.0) g/dL Albumin 4.4 (3.5-5.0) g/dL Monoscreen (Negative) Influenza Type A (PCR) (Negative) Influenza Type B (PCR) (Negative) RSV RNA Qual (PCR) (Negative) SARS-CoV-2 RNA (RT-PCR) (Negative) S. pyogenes GrpA SANTI (Negative) Independent Interpretation I performed an independent interpretation of an: CT Scan Radiology Impression Discussion of test interpretation with radiology: I have reviewed the radiologist's reading. Radiologist Impression: [place] [id number] CT Scan Report Signed Patient: Ronaldo Schwab MR#: [id number] : 1995 Acct:[id number] Age/Sex: 26 / M ADM Date: 07/01/22 Loc: .ED Attending Dr: Ordering Physician: Vira Corbett NP Date of Service: 07/01/22 Procedure(s): CT soft tissue neck w IV con Accession Number(s): [id number] cc: Vira Corbett NP~ EXAMINATION: CT SOFT TISSUE NECK WITH CONTRAST CLINICAL INFORMATION: Rule out left peritonsillar abscess? COMPARISON: None.? TECHNIQUE: Following the administration of 60 mL of Omnipaque 350 intravenous contrast, helical imaging was performed in the axial plane with generation of coronal and sagittal reformatted images. This CT examination was performed using dose optimization techniques as appropriate, variously including the following: *Automated exposure control. *Adjustment of mA and/or kV according to patient size (this includes techniques or standardized protocols for targeted exams where dose is matched to indication/reason for exam; i.e. extremities or head). *Use of iterative reconstruction technique. DLP: 695.86 mGy-cm mGy-cm. FINDINGS: Nasopharynx/skull base: The fat planes of the skull base and soft tissues of the nasopharynx are unremarkable. The paranasal sinuses and mastoid air cells are well aerated. The temporomandibular joints are normal. Suprahyoid neck: The oral cavity and bilateral salivary gland tissues are unremarkable. There is enlargement and hypodensity of the superior left palatine tonsil with edema extending to involve the left lateral nasopharyngeal wall, left lateral oropharyngeal wall, epiglottis, and left aryepiglottic fold with effacement of the left piriform sinus. There is rightward deviation of the oropharyngeal airway which is mildly narrowed. No discrete rim-enhancing fluid density collection is identified to suggest a well-formed tonsillar or peritonsillar abscess. Infrahyoid neck: The hypopharynx and larynx are unremarkable. There is a subcentimeter collection of gas along the right tracheoesophageal groove at the level of thoracic inlet, likely representing a tracheal diverticulum. No aerodigestive tract mass. Thyroid: The thyroid gland is normal. Lymph nodes: There is no cervical chain lymphadenopathy. Prominent but nonpathologically enlarged bilateral cervical lymph nodes are likely reactive. Lung apices: The partially visualized lung apices are clear. Vascular structures: No hemodynamically significant stenosis, dissection, or occlusion. Osseous structures: The osseous structures are intact without suspicious focal lesion. Mild degenerative disc disease with endplate osteophytosis at multiple levels, most notably C6-C7. Other: The imaged portions of the brain parenchyma are unremarkable. CT/CT soft tissue neck w IV con IMPRESSION: ? 1.? Enlargement and hypodensity of the left palatine tonsil with extensive mucosal edema extending throughout the left pharynx and involving the epiglottis and left aryepiglottic fold. Rightward deviation of the oropharyngeal airway which is mildly narrowed. No discrete rim-enhancing fluid density collection is identified to suggest a drainable tonsillar or peritonsillar abscess. Hypodensity within the left palatine tonsil may reflect edema and/or phlegmon/developing abscess. ? 2.? 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 Discharge Plan Discharge Patient Disposition: Admitted As Inpatient Prescriptions: No Action amoxicillin 875 mg tablet 875 mg PO Q12H Qty: 20 0RF Referrals: [facility] [Primary Care Provider] - 1 Week
[2022-07-01 08:45] LABS: MANUAL DIFF FLAG NO
[2022-07-01 08:53] LABS: Lactic Acid 0.6 mmol/L (0.5-2.0)
[2022-07-01 08:54] LABS: Basophils Absolute Auto 0.1 X10*3/uL (0.0-0.2); Basophils Percent Auto 0.3 % (0-2); Eosinophils Percent Auto 0.2 % (0-4); Hematocrit 44.2 % (42.0-52.0); Hemoglobin 14.9 g/dl (14.0-18.0); Imm Gran Abs Auto 0.08 X10*3/uL (0.00-0.03); Imm Gran Pct Auto 0.4 % (0.0-0.4); Lymphocytes Absolute Auto 2.2 X10*3/uL (1.2-4.9); Lymphocytes Percent Auto 11.7 % (20-40); Mean Corpuscular HGB Conc 33.7 g/dl (31.0-36.0); Mean Corpuscular Hemoglobin 30.2 pg (27.0-33.0); Mean Corpuscular Volume 89.5 fL (80.0-98.0); Mean Platelet Volume 11.8 fL (9.4-12.4); Monocytes Absolute Auto 1.4 X10*3/uL (0.1-1.2); Monocytes Percent Auto 7.4 % (2-11); Neutrophils Absolute Auto 14.8 x10*3/uL (2.0-8.3); Platelet Count 226 X10*3/uL (160-400); Red Blood Count 4.94 X10*6/uL (4.60-5.80); Red Cell Distribution Width 12.4 % (11.0-16.0); White Blood Count 18.5 X10*3/uL (4.8-10.8)
[2022-07-01 08:57] LABS: IDNOW Serial# 08D9AD1C
[2022-07-01 08:58] LABS: Strep A Nucleic Acid Negative (Negative)
[2022-07-01 09:01] LABS: Alanine Aminotransferase 8 U/L (0-40); Albumin Level 4.4 g/dL (3.5-5.0); Alkaline Phosphatase 65 U/L (39-117); Anion Gap 19 (12-20); Aspartate Amino Transferase 11 U/L (5-37); Bilirubin Direct 0.3 mg/dL (0.0-0.5); Bilirubin Total 1.1 mg/dL (0.0-1.0); Blood Urea Nitrogen 12 mg/dL (9-16); Calcium 9.4 mg/dL (8.4-10.2); Carbon Dioxide 22 mmol/L (22-29); Chloride 103 mmol/L (96-108); Creatinine Clr Calc Pharmacy 137.6; Estimated Glomerular Filt Rate > 60; Glucose Random 93 mg/dL (60-115); Potassium 3.6 mmol/L (3.3-5.1); Sodium 140 mmol/L (135-145); Total Protein 7.8 g/dL (6.5-8.0)
[2022-07-01 09:08] LABS: Monotest Negative (Negative)
[2022-07-01] MEDS: Clindamycin Phosphate/D5W 600 MG/50 ML PIGGYBACK 100 MG IV (09:16)
[2022-07-01] MEDS: Ketorolac Tromethamine 30 MG/ML VIAL IVPUSH (09:16)
[2022-07-01] MEDS: dexAMETHasone sod phosphate 10 MG/ML VIAL IVPUSH (09:16)
[2022-07-01] MEDS: 0.9 % Sodium Chloride 1,000 ML 999 ML IV (09:17)
[2022-07-01 09:21] VITALS: BP 139/68; PULSE 65; RESP 16; O2SAT 96
[2022-07-01 09:28] LABS: Influenza A PCR NEGATIVE (Negative); Influenza B PCR NEGATIVE (Negative); Resp Syncy Virus RNA Qual PCR NEGATIVE (Negative); SARS COV2 PCR INHOUSE NEGATIVE (Negative)
[2022-07-01] MEDS: iohexoL 350 MG/ML 100 ML INFUS..BTL 60 ML IV (10:38)
[2022-07-01 11:38] VITALS: BP 119/53; PULSE 72; RESP 16; O2SAT 99
--- NOTE | 2022-07-01 12:00 | PC.NURSE ---
PT IN NAD, AIRWAY PATENT. STATES DIFF SWALLOWING, WITH VOICE CHANGES. PT MAINTAINING OWN SECRETIONS WITH NO ISSUE.
--- NOTE | 2022-07-01 12:19 | MHC.EDTECH ---
@[address] called [facility] per request of KRISTOPHER Constantino. Gave patient demographics and a call back number to the individual on the phone. She then asked to speak with Vira to get the diagnosis. Vira took the call right away.
--- NOTE | 2022-07-01 13:07 | PM.IMHP ---
History of Present Illness Date of Service: 07/01/22 Attending physician on admission: Eric Moreno Chief Complaint: sore throat This is a 26-year-old male with a past medical history as noted below presented to the emergency department complaints of a sore throat ongoing for the past 4 days. Patient was seen here on 06/29/2022 for similar symptoms and had a strep test performed which was negative. He has diagnosis of pharyngitis and sent home on amoxicillin. Patient reported to ED provider that he has taken 2 doses of the antibiotics however last night he developed a fever Wilfredo complaints of increase difficulty swallowing and sore throat. CT soft tissue neck with IV contrast:Enlargement and hypodensity of the left palatine tonsil with extensive mucosal edema extending throughout the left pharynx and involving the epiglottis and left aryepiglottic fold. Rightward deviation of the oropharyngeal airway which is mildly narrowed No discrete rim-enhancing fluid density collection is identified to suggest a drainable tonsillar or peritonsillar abscess. Hypodensity within the left palatine tonsil may reflect edema and/or phlegmon/developing abscess. 2.? 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 Initial laboratory results: WBC is 18.5, CMP mainly unremarkable with exception of total bilirubin 1.1 however direct bili 0.3. In the emergency department the above was performed and patient received 1 L NS, 10 mg IVP Decadron, 30 mg IVP ketorolac and 600 mg clindamycin. The decision was made to admit patient for medical management. Unfortunately, by the time I went to assess patient, he had left [facility] Medical History Cigarette smoker one half pack a day or less COVID-19 vaccination refused Excessive daytime sleepiness Excessive sleepiness while driving History of COVID-19 Snoring Family History Father Substance use disorder HTN (hypertension) Paternal Grandfather Throat cancer Social History Housing: Apartment Alcohol intake: former Patient Tobacco Use Status: Current everyday Tobacco user Cigarettes Per Day: 10 Years Smoked: 12 Advance Directives: No Advance Directives Information Provided: No service: No Current occupational status: unemployed Meds Allergies Allergy/AdvReac Type Severity Reaction Status Date / Time No Known Allergies Allergy Verified 02/06/21 22:53 [No Known Allergies*] Active Medications: Current Medications Pharmacy Consult (Consult Rx Perform Med Rec) 1 each MISCELLANE ONCE PRN PRN Reason: Consult order Physical Exam Vital Signs and Narrative: Vital Signs: Last Vital Signs Temp 98.7 F 07/01/22 07:19 Pulse 72 07/01/22 11:38 Resp 16 07/01/22 11:38 BP 119/53 L 07/01/22 11:38 Pulse Ox 99 07/01/22 11:38 O2 Del Method Room Air 07/01/22 11:38 BMI result Body Mass Index 26.4 Results Labs 07/01/22 08:37 07/01/22 08:37 Labs: Laboratory Results - last 24 hr 07/01/22 07/01/22 07/01/22 08:37 08:37 08:37 MCV MCH MCHC RDW Plt Count MPV Immature Gran % (Auto) Neut % (Auto) Lymph % (Auto) [place] % (Auto) Eos % (Auto) Baso % (Auto) Lymph # (Auto) [place] # (Auto) Eos # (Auto) Baso # (Auto) Abs Immat Gran (auto) Absolute Neuts (auto) Absolute Nucleated RBC Nucleated RBC % (auto) Anion Gap Estim Creat Clear Calc Estimated GFR Random Glucose Lactic Acid Calcium Total Bilirubin Direct Bilirubin AST ALT Alkaline Phosphatase Total Protein Albumin Monoscreen Negative Influenza Type A (PCR) NEGATIVE Influenza Type B (PCR) NEGATIVE RSV RNA Qual (PCR) NEGATIVE SARS-CoV-2 RNA (RT-PCR) NEGATIVE S. pyogenes GrpA SANTI Negative 07/01/22 07/01/22 07/01/22 08:37 08:37 08:37 MCV 89.5 MCH 30.2 MCHC 33.7 RDW 12.4 Plt Count 226 MPV 11.8 Immature Gran % (Auto) 0.4 Neut % (Auto) 80.0 H Lymph % (Auto) 11.7 L [place] % (Auto) 7.4 Eos % (Auto) 0.2 Baso % (Auto) 0.3 Lymph # (Auto) 2.2 [place] # (Auto) 1.4 H Eos # (Auto) 0.0 Baso # (Auto) 0.1 Abs Immat Gran (auto) 0.08 H Absolute Neuts (auto) 14.8 H Absolute Nucleated RBC 0.000 Nucleated RBC % (auto) 0.0 Anion Gap 19 Estim Creat Clear Calc 137.6 Estimated GFR > 60 Random Glucose 93 Lactic Acid 0.6 Calcium 9.4 Total Bilirubin 1.1 H Direct Bilirubin 0.3 AST 11 ALT 8 Alkaline Phosphatase 65 Total Protein 7.8 Albumin 4.4 Monoscreen Influenza Type A (PCR) Influenza Type B (PCR) RSV RNA Qual (PCR) SARS-CoV-2 RNA (RT-PCR) S. pyogenes GrpA SANTI Imaging Radiologist's Impressions: Impressions Soft Tissue Neck CT 07/01/22 10:00 IMPRESSION: 1. Enlargement and hypodensity of the left palatine tonsil with extensive mucosal edema extending throughout the left pharynx and involving the epiglottis and left aryepiglottic fold. Rightward deviation of the oropharyngeal airway which is mildly narrowed. No discrete rim-enhancing fluid density collection is identified to suggest a drainable tonsillar or peritonsillar abscess. Hypodensity within the left palatine tonsil may reflect edema and/or phlegmon/developing abscess. 2. 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 Assessment and Plan (1) Pharyngitis: Status: Inactive Plan 26-year-old male admitted with pharyngitis ACUTE ISSUES: Pharyngitis/tonsillitis -ED consulted ENT Dr. Rangel(on-call ENT for [facility]) who recommended continue IV fluids, antibiotics, Decadron and supportive care. -there is no drainable abscess on CT so there is no current role for ENT intervention -continue clindamycin 900 mg q.8 hours, Decadron 10 mg IVP q.d., liquid diet, analgesics, antiemetics antipyretics and sore throat lozenge CHRONIC LONGSTANDING ISSUES: Tobacco use-patient educated on importance of abstaining/confirmed nicotine use. NRT was offered. Patient is a full code Emergency cerson to contact is patient's significant other Lovely García, Time Spent With Patient Time: Total time managing care of this patient today ____ minutes. Quality Stroke Does the patient have a stroke diagnosis?: No VTE Prior VTE?: No VTE Risk Level:: Medical - low VTE Device Contraindication: N/A - Device Ordered VTE Drug Contraindication: N/A - Med Ordered
--- NOTE | 2022-07-01 13:10 | PHA.MEDREC ---
Pharmacy Consult ? Medication Reconciliation Pharmacy has completed the medication reconciliation. spoke with patient. He does not take any medications at home. Only on the amoxicillin that was given to him yesterday. He last took it at 1am today.
--- NOTE | 2022-07-01 13:53 | PC.NURSE ---
PT ELOPED WITHOUT NOTIFYING STAFF FOR A FAMILY EMERGENCY. WAS CONTACTED TO EXPLAIN CONSEQUENCES FOR ELOPEMENT. STATES HE HAS TAKEN OUT HIS OWN IV. HOSPITALIST NOTIFIED.
--- NOTE | 2022-07-01 14:11 | PC.NURSE ---
pt eloped from room.
[2022-07-01 19:03] VITALS: BP 137/77; PULSE 68; RESP 18; TEMP 36.5; O2SAT 97
[2022-07-01] MEDS: Acetaminophen 325 MG TABLET 650 MG PO (19:39)
[2022-07-01] MEDS: 0.9 % Sodium Chloride 1,000 ML 125 ML IVCONT (19:41)
[2022-07-01] MEDS: 0.9 % Sodium Chloride Flush 3 ML SYRINGE IVFLUSH (19:44)
--- NOTE | 2022-07-01 19:46 | P.HPHOSP_ITS ---
History of Present Illness Date of Service: 07/01/22 Attending physician on admission: Eric Moreno Chief Complaint: Sore throat, difficulty swallowing Patient left AMA earlier in the day and returned at a later time. Please disregard previous H&P This is a 26-year-old male with a past medical history as noted below presented to the emergency department complaints of a sore throat ongoing for the past 4 days.? Patient was seen here on 06/29/2022 for similar symptoms and had a strep test performed which was negative.? He has diagnosis of pharyngitis and sent home on amoxicillin.? Patient reported to ED provider that he has taken 2 doses of the antibiotics however last night he developed a fever and reports worsening difficulty swallowing and sore throat.? Patient initially left AMA from the emergency department after being admitted however he came back for readmission.? He reports an emergency and wants stay in the hospital for treatment. CT soft tissue neck with IV contrast:Enlargement and hypodensity of the left palatine tonsil with extensive mucosal edema extending throughout the left pharynx and involving the epiglottis and left aryepiglottic fold. Rightward deviation of the oropharyngeal airway which is mildly narrowed No discrete rim- enhancing fluid density collection is identified to suggest a drainable tonsillar or peritonsillar abscess. Hypodensity within the left palatine tonsil may reflect edema and/or phlegmon/developing abscess. 2.? 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 Initial laboratory results:? WBC is 18.5, CMP mainly unremarkable with exception of total bilirubin 1.1 however direct bili 0.3. In the emergency department the above was performed and patient received 1 L NS, 10 mg IVP Decadron, 30 mg IVP ketorolac and 600 mg clindamycin. The decision was made to admit patient for medical management. Review of Systems Review of Systems: A complete 12 point review of systems was performed and are negative if not no fatemeh in HPI. [facility] Medical History Cigarette smoker one half pack a day or less COVID-19 vaccination refused Excessive daytime sleepiness Excessive sleepiness while driving History of COVID-19 Snoring Family History Father Substance use disorder HTN (hypertension) Paternal Grandfather Throat cancer Social History Household Members: Family Housing: Apartment Do you presently have visiting nurse or other home services: No Alcohol intake: former Patient Tobacco Use Status: Current everyday Tobacco user Tobacco use type: Cigarette Cigarette Packs Per Day: 0.5 Cigarettes Per Day: 10.0 Years Smoked: 12 Use of substances other than those prescribed or required for medical reasons: Yes Substance Use Type: Marijuana Substance Use Frequency: Daily Advance Directives: No Advance Directives Information Provided: Yes service: No Current occupational status: unemployed Meds Allergies Allergy/AdvReac Type Severity Reaction Status Date / Time No Known Allergies Allergy Verified 02/06/21 22:53 [No Known Allergies*] Active Medications: Current Medications Acetaminophen (Acetaminophen Supp 650 Mg Supp.Rect) 650 mg DE Q6H PRN PRN Reason: Pain, Mild (Pain Scale 1-3) Acetaminophen (Acetaminophen 325 Mg Tablet) 650 mg PO Q6H PRN PRN Reason: Fever Last Admin: 07/01/22 19:39 Dose: 650 mg Benzocaine (Throat Lozenge, Medicated Lozenge) 1 lozenge MUCOUS MEM Q2H PRN PRN Reason: Sore Throat Dexamethasone Sodium Phosphate (Dexamethasone Sod Phosphate 10 Mg/Ml Vial) 10 mg IVPUSH Q24H [facility] Enoxaparin Sodium (Enoxaparin Sodium 40 Mg/0.4 Ml Syringe) 40 mg SUBCUT Q24H [facility] Last Admin: 07/01/22 19:33 Dose: Not Given Sodium Chloride (Ns) 1,000 mls @ 125 mls/hr IVCONT .Q8H [facility] Last Admin: 07/01/22 19:41 Dose: 125 mls/hr Ondansetron HCl (Ondansetron Hcl 4 Mg/2 Ml Vial) 4 mg IVPUSH Q8H PRN PRN Reason: Nausea and Vomiting Pharmacy Consult (Consult Rx Perform Med Rec) 1 each MISCELLANE ONCE PRN PRN Reason: Consult order Sodium Chloride (0.9 % Sodium Chloride Flush 3 Ml Syringe) 3 ml IVFLUSH QSHIFT [facility] Last Admin: 07/01/22 19:44 Dose: 3 ml Physical Exam Vital Signs and Narrative: Vital Signs: Last Vital Signs Temp 97.7 F 07/01/22 19:03 Pulse 68 07/01/22 19:03 Resp 18 07/01/22 19:03 BP 137/77 07/01/22 19:03 Pulse Ox 97 07/01/22 19:03 O2 Del Method Room Air 07/01/22 19:03 BMI result Body Mass Index 26.4 Const: Other: General: Appears stated age, in no acute distress, answers questions accurately and appropriately.? Able to speak in full sentences. Mouth:? No drooling noted, patient's tonsils are 3+, erythema and edema noted to the uvula, no abscess noted Skin: Warm and well perfused, no obvious lesions, bruises, open wounds or sores Cardiology: Regular rate and rhythm, no murmurs, rubs, gallops or clicks, no JVD or carotid bruits appreciated Respiratory: Lungs CTAB, no inspiratory wheezing, rales or rhonchi, no increased accessory muscle use noted, no respiratory distress, good air movement. Abdomen: Soft, non distended, nontender, bowel sounds active in all 4 quadrants, no abdominal guarding or [place] sign Extremity: No pitting edema noted, no redness, tenderness or swelling noted to bilateral lower extremities. Neuro: Alert and oriented x3, no obvious focal deficits Psych:? Calm, appropriate, follows commands, no agitation restlessness noted Results Labs 07/01/22 08:37 07/01/22 08:37 Labs: Laboratory Results - last 24 hr 07/01/22 07/01/22 07/01/22 08:37 08:37 08:37 MCV MCH MCHC RDW Plt Count MPV Immature Gran % (Auto) Neut % (Auto) Lymph % (Auto) [place] % (Auto) Eos % (Auto) Baso % (Auto) Lymph # (Auto) [place] # (Auto) Eos # (Auto) Baso # (Auto) Abs Immat Gran (auto) Absolute Neuts (auto) Absolute Nucleated RBC Nucleated RBC % (auto) Anion Gap Estim Creat Clear Calc Estimated GFR Random Glucose Lactic Acid Calcium Total Bilirubin Direct Bilirubin AST ALT Alkaline Phosphatase Total Protein Albumin Monoscreen Negative Influenza Type A (PCR) NEGATIVE Influenza Type B (PCR) NEGATIVE RSV RNA Qual (PCR) NEGATIVE SARS-CoV-2 RNA (RT-PCR) NEGATIVE S. pyogenes GrpA SANTI Negative 07/01/22 07/01/22 07/01/22 08:37 08:37 08:37 MCV 89.5 MCH 30.2 MCHC 33.7 RDW 12.4 Plt Count 226 MPV 11.8 Immature Gran % (Auto) 0.4 Neut % (Auto) 80.0 H Lymph % (Auto) 11.7 L [place] % (Auto) 7.4 Eos % (Auto) 0.2 Baso % (Auto) 0.3 Lymph # (Auto) 2.2 [place] # (Auto) 1.4 H Eos # (Auto) 0.0 Baso # (Auto) 0.1 Abs Immat Gran (auto) 0.08 H Absolute Neuts (auto) 14.8 H Absolute Nucleated RBC 0.000 Nucleated RBC % (auto) 0.0 Anion Gap 19 Estim Creat Clear Calc 137.6 Estimated GFR > 60 Random Glucose 93 Lactic Acid 0.6 Calcium 9.4 Total Bilirubin 1.1 H Direct Bilirubin 0.3 AST 11 ALT 8 Alkaline Phosphatase 65 Total Protein 7.8 Albumin 4.4 Monoscreen Influenza Type A (PCR) Influenza Type B (PCR) RSV RNA Qual (PCR) SARS-CoV-2 RNA (RT-PCR) S. pyogenes GrpA SANTI Imaging Radiologist's Impressions: Impressions Soft Tissue Neck CT 07/01/22 10:00 IMPRESSION: 1. Enlargement and hypodensity of the left palatine tonsil with extensive mucosal edema extending throughout the left pharynx and involving the epiglottis and left aryepiglottic fold. Rightward deviation of the oropharyngeal airway which is mildly narrowed. No discrete rim-enhancing fluid density collection is identified to suggest a drainable tonsillar or peritonsillar abscess. Hypodensity within the left palatine tonsil may reflect edema and/or phlegmon/developing abscess. 2. 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 Assessment and Plan (1) Peritonsillar abscess: Status: Acute (2) Pharyngitis: Status: Acute Plan ACUTE ISSUES: Peritonsillar abscess Pharyngitis -26-year-old male admitted with pharyngitis, concerns for developing peritonsillar abscess.? -.? Soft tissue neck CT:? Enlargement and hypodensity of the left palatine tonsil with extensive mucosal edema extending throughout the left pharynx and involving the epiglottis and left aryepiglottic fold. Rightward deviation of the oropharyngeal airway which is mildly narrowed. No discrete rim-enhancing fluid density collection is identified to suggest a drainable tonsillar or peritonsillar abscess. Hypodensity within the left palatine tonsil may reflect edema and/or phlegmon/developing abscess. 2.? 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 - ED consulted ENT Dr. Rangel(on-call ENT for [facility]) who? recommended continue IV fluids, antibiotics, Decadron and supportive care. - There is no drainable abscess on CT so there is no current role for ENT intervention - Continue clindamycin 900 mg q.8 hours, Decadron 10 mg IVP q.d., liquid diet, analgesics, antiemetics antipyretics and sore throat lozenge CHRONIC LONGSTANDING ISSUES: Tobacco use-patient educated on importance of abstaining/confirmed nicotine use.? NRT was offered however he declined. Patient is a full code Emergency cerson to contact is patient's significant other Lovely Ricky, Time Spent With Patient Time Spent With Patient Time: Total time managing care of this patient today ____ minutes. Quality Stroke Does the patient have a stroke diagnosis?: No VTE Prior VTE?: No VTE Risk Level:: Medical - low VTE Device Contraindication: N/A - Device Ordered VTE Drug Contraindication: N/A - Med Ordered
[2022-07-01] MEDS: oxyCODONE HCl Immed Release 5 MG TABLET PO (23:24)
[2022-07-01 23:44] VITALS: BP 130/60; PULSE 68; RESP 16; TEMP 36.4; O2SAT 97
[2022-07-02] MEDS: 0.9 % Sodium Chloride 1,000 ML 125 ML IVCONT (03:19)
[2022-07-02 06:04] LABS: Hematocrit 40.6 % (42.0-52.0); Hemoglobin 13.6 g/dl (14.0-18.0); Mean Corpuscular HGB Conc 33.5 g/dl (31.0-36.0); Mean Corpuscular Hemoglobin 30.1 pg (27.0-33.0); Mean Corpuscular Volume 89.8 fL (80.0-98.0); Mean Platelet Volume 12.1 fL (9.4-12.4); Platelet Count 217 X10*3/uL (160-400); Red Blood Count 4.52 X10*6/uL (4.60-5.80); Red Cell Distribution Width 12.5 % (11.0-16.0); White Blood Count 18.3 X10*3/uL (4.8-10.8)
[2022-07-02 06:48] LABS: Anion Gap 16 (12-20); Blood Urea Nitrogen 15 mg/dL (9-16); Calcium 8.9 mg/dL (8.4-10.2); Carbon Dioxide 23 mmol/L (22-29); Chloride 105 mmol/L (96-108); Creatinine Clr Calc Pharmacy 143.1; Estimated Glomerular Filt Rate > 60; Glucose Random 102 mg/dL (60-115); Potassium 4.3 mmol/L (3.3-5.1); Sodium 140 mmol/L (135-145)
[2022-07-02 07:30] VITALS: BP 126/61; PULSE 60; RESP 18; TEMP 37.2; O2SAT 98
[2022-07-02] MEDS: dexAMETHasone sod phosphate 10 MG/ML VIAL IVPUSH (07:35)
[2022-07-02] MEDS: 0.9 % Sodium Chloride Flush 3 ML SYRINGE IVFLUSH (07:39)
--- NOTE | 2022-07-02 09:01 | P.DS_ITS ---
DS: Providers Provider Date of Service: 07/02/22 Date of admission: 07/01/22 13:20 Primary care physician: [facility] DS: Diagnosis Discharge Diagnosis (1) Peritonsillar abscess: Status: Acute (2) Pharyngitis: Status: Acute DS: Summary Hospital Course Hospital Course: from initial hpi: 26-year-old male with a past medical history as noted below presented to the emergency department complaints of a sore throat ongoing for the past 4 days.? Patient was seen here on 06/29/2022 for similar symptoms and had a strep test performed which was negative.? He has diagnosis of pharyngitis and sent home on amoxicillin.? Patient reported to ED provider that he has taken 2 doses of the antibiotics however last night he developed a fever and reports worsening difficulty swallowing and sore throat.? Patient initially left AMA from the emergency department after being admitted however he came back for readmission.? He reports an emergency and wants stay in the hospital for treatment. CT soft tissue neck with IV contrast:Enlargement and hypodensity of the left palatine tonsil with extensive mucosal edema extending throughout the left pharynx and involving the epiglottis and left aryepiglottic fold. Rightward deviation of the oropharyngeal airway which is mildly narrowed No discrete rim- enhancing fluid density collection is identified to suggest a drainable tonsillar or peritonsillar abscess. Hypodensity within the left palatine tonsil may reflect edema and/or phlegmon/developing abscess. 2.? 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 Initial laboratory results:? WBC is 18.5, CMP mainly unremarkable with exception of total bilirubin 1.1 however direct bili 0.3. In the emergency department the above was performed and patient received 1 L NS, 10 mg IVP Decadron, 30 mg IVP ketorolac and 600 mg clindamycin. The decision was made to admit patient for medical management. hospital course: Patient was admitted for pharyngitis with concern for developing. Also abscess. He was treated with steroids and clindamycin with significant improvement. Patient will be discharged on 2 more days of prednisone and 7 more days of clindamycin. Time Spent with Patient Time attestation: Total time managing care of this patient today ____ minutes. Discharge coordination time: Greater than 30 minutes Quality: Safe Use of Opioids Does Pt have an Active Cancer Diagnosis on the Problem List?: No Quality: Stroke Does the patient have a stroke diagnosis?: No Physical Exam Vital Signs: Vital Signs: Last Vital Signs Temp 98.9 F 07/02/22 07:30 Pulse 60 07/02/22 07:30 Resp 18 07/02/22 07:30 BP 126/61 07/02/22 07:30 Pulse Ox 98 07/02/22 07:30 O2 Del Method Room Air 07/02/22 07:30 BMI result Body Mass Index 26.4 General: AO X 3, no acute distress Resp: CTA bilateral, no accessory muscles used CVS: S1,S2,RRR GI: soft, non tender, non distended Neuro: motor grossly intact, alert Psych: appropriate affect, appropriate insight DS: Data Data Completed and Pending Labs on day of discharge: Laboratory Results - last 24 hr 07/01/22 07/01/22 07/01/22 08:37 08:37 08:37 WBC RBC Hgb Hct MCV MCH MCHC RDW Plt Count MPV Absolute Nucleated RBC Nucleated RBC % (auto) Sodium 140 Potassium 3.6 Chloride 103 Carbon Dioxide 22 Anion Gap 19 BUN 12 Creatinine 0.78 Estim Creat Clear Calc 137.6 Estimated GFR > 60 Random Glucose 93 Calcium 9.4 Total Bilirubin 1.1 H Direct Bilirubin 0.3 AST 11 ALT 8 Alkaline Phosphatase 65 Total Protein 7.8 Albumin 4.4 Monoscreen Negative Influenza Type A (PCR) NEGATIVE Influenza Type B (PCR) NEGATIVE RSV RNA Qual (PCR) NEGATIVE SARS-CoV-2 RNA (RT-PCR) NEGATIVE 07/02/22 07/02/22 05:30 05:30 WBC 18.3 H RBC 4.52 L Hgb 13.6 L Hct 40.6 L MCV 89.8 MCH 30.1 MCHC 33.5 RDW 12.5 Plt Count 217 MPV 12.1 Absolute Nucleated RBC 0.000 Nucleated RBC % (auto) 0.0 Sodium 140 Potassium 4.3 Chloride 105 Carbon Dioxide 23 Anion Gap 16 BUN 15 Creatinine 0.75 Estim Creat Clear Calc 143.1 Estimated GFR > 60 Random Glucose 102 Calcium 8.9 Total Bilirubin Direct Bilirubin AST ALT Alkaline Phosphatase Total Protein Albumin Monoscreen Influenza Type A (PCR) Influenza Type B (PCR) RSV RNA Qual (PCR) SARS-CoV-2 RNA (RT-PCR) Discharge Plan Discharge Anticipated Discharge Date/Time: 07/02/22 08:58 Patient Disposition: Home, Self-Care Discharge Diagnosis: peritonsillar abscess Referrals: [facility] [Primary Care Provider] - 1 Week Discharge Medications: New prednisone 20 mg tablet 40 mg PO DAILY Qty: 4 0RF clindamycin HCl 300 mg capsule 300 mg PO Q8H Qty: 21 0RF Discontinued amoxicillin 875 mg tablet 875 mg PO Q12H Qty: 20 0RF Discharge Orders: Discharge Order (Routine); Ordered 07/02/22 Ordered By: Eric Moreno Diet: Advance to usual diet Activity on Discharge: As tolerated Stand Alone Forms: Patient Portal Discharge page Care Plan Goals: recovery Health Concerns: infection Plan of Treatment: prednisone and clinda Assessment: see above
--- NOTE | 2022-07-02 09:12 | MHC.CM.PN ---
PT WILL DC HOME TODAY WITH NO SERVICES PT TO ARRANGE TRANSPORT
--- NOTE | 2022-07-02 15:20 | MHC.CM.PN ---
PT LIVES WITH S/O, FULLY INDEPENDENT WITH CARE PCP AT [facility] NO CM INTERVENTION INDICATED PT DISCHARGED TODAY WITH NO SERVICES FAMILY TO PROVIDE TRANSPORT
== END 2022-07-02 10:45 | disposition home or self-care (01) ==
LOC: HO.ED 13:09 → HO.EDOVER 13:50 → HO.S3 17:23
PROVIDERS: Nurse Practitioner Family; Admitting Provider Registered Nurse; Emergency Provider Emergency Medicine; Visit Provider Internal Medicine
DX: J36 Peritonsillar abscess (principal); J02.9 Acute pharyngitis, unspecified; R50.9 Fever, unspecified; F17.210 Nicotine dependence, cigarettes, uncomplicated; Z20.822 Contact with and (suspected) exposure to COVID-19; Z20.828 Contact with and (suspected) exposure to other viral communicable diseases
CPT/HCPCS: 0241U; 36415; 70491; 80048; 80076; 83605; 85025; 85027; 86308; 87040; 87651; 96361; 96365; 96366; 96375; 96376; 99221; 99284; 99285; J1100; J1885; Q9967

== ENCOUNTER 2022-07-01 14:50 | Emergency (ER) | payer MEDICAID, SELFPAY ==
--- NOTE | 2022-07-01 14:59 | ED.GENADULT ---
HPI - General Adult General Chief complaint: General Medical <KRISTOPHER Ryan - Last Filed: 07/01/22 15:01> Stated complaint: throat infection <KRISTOPHER Ryan - Last Filed: 07/01/22 15:01> Time Seen by Provider: 07/01/22 15:17 <KRISTOPHER Ryan - Last Filed: 07/01/22 15:01> Source: patient <Vira Oden NP - Last Filed: 07/01/22 16:50> Mode of arrival: ambulatory <Vira Oedn NP - Last Filed: 07/01/22 16:50> Limitations: no limitations <Vira Oden NP - Last Filed: 07/01/22 16:50> History of Present Illness HPI narrative: 26-year-old male who is currently admitted for a left sided pharyngitis who decided to elope from the emergency room and now decided to return for admission. No additional complaint <Vira Oden NP - Last Filed: 07/01/22 16:50> Related Data Home medications: Previous Rx's Medication Instructions Recorded amoxicillin 875 mg tablet 875 mg PO Q12H #20 tabs 06/29/22 <KRISTOPHER Ryan - Last Filed: 07/01/22 15:01> Allergies/adverse reactions: Allergies Allergy/AdvReac Type Severity Reaction Status Date / Time No Known Allergies Allergy Verified 02/06/21 22:53 [No Known Allergies*] <KRISTOPHER Ryan Last Filed: 07/01/22 15:01> Review of Systems Review of Systems: Yes all other systems are reviewed and are negative <Vira Oden NP - Last Filed: 07/01/22 16:50> Constitutional: Constitutional: Reports no additional constitutional complaints, Denies body ache(s), Denies chills, Denies fever(s), Denies headache(s) and Denies weakness <DANIAL Mcguire Last Filed: 07/01/22 16:50> Eyes: Eyes: Reports no additional eye complaints and Denies change in vision <DANIAL Mcguire Last Filed: 07/01/22 16:50> ENT: Reports system reviewed and no additional complaints, except as documented, Denies dizziness, Denies headache(s), Denies nasal congestion, Denies nasal discharge, Denies neck pain and Reports sore throat <Vira Oden [employer] - Last Filed: 07/01/22 16:50> Cardiovascular: Cardiovascular: Reports no additional cardiovascular complaints, Denies chest pain, Denies leg edema and Denies dyspnea <Vira Oden [employer] - Last Filed: 07/01/22 16:50> Respiratory: Respiratory: Reports no additional respiratory complaints, Denies cough and Denies dyspnea <Vira Oden [employer] - Last Filed: 07/01/22 16:50> Gastrointestinal: Gastrointestinal: Reports no additional gastrointestinal complaints, Denies abdominal pain, Denies diarrhea, Denies nausea and Denies vomiting <Vira Oden [employer]FA[employer] - Last Filed: 07/01/22 16:50> Genitourinary: Genitourinary: Denies urinary incontinence <Vira Oden [employer]FA[employer]ING [employer] - Last Filed: 07/01/22 16:50> Musculoskeletal: Musculoskeletal: Reports no additional musculoskeletal complaints, Denies back pain, Denies arthralgias, Denies joint swelling, Denies neck pain, Denies numbness and Denies tingling <Vira Oden [employer] - Last Filed: 07/01/22 16:50> Integumentary/Breasts: Skin/Breast: Reports system reviewed and no additional complaints, except as docu and Denies rash <Vira Oden [employer]FA[employer]ING [employer] - Last Filed: 07/01/22 16:50> Neurologic: Reports system reviewed and no additional complaints, except as documented, Denies dizziness, Denies headache(s), Denies numbness, Denies tingling and Denies weakness <Vira Oden NP - Last Filed: 07/01/22 16:50> PMFSH Past Medical History Attestation statement: The following information was validated with the patient. <Vira Oden NP - Last Filed: 07/01/22 16:50> Source: old records reviewed and nursing notes reviewed <Vira Oden [employer]BER - Last Filed: 07/01/22 16:50> Medical History: Medical History Cigarette smoker one half pack a day or less COVID-19 vaccination refused Excessive daytime sleepiness Excessive sleepiness while driving History of COVID-19 Snoring <KRISTOPHER Ryan - Last Filed: 07/01/22 15:01> Family History Family History: Family History Father Substance use disorder HTN (hypertension) Paternal Grandfather Throat cancer <KRISTOPHER Ryan - Last Filed: 07/01/22 15:01> Social History Social History: Social History Housing: Apartment Alcohol intake: former Patient Tobacco Use Status: Current everyday Tobacco user Cigarettes Per Day: 10 Years Smoked: 12 Use of substances other than those prescribed or required for medical reasons: Yes Substance Use Type: Marijuana Substance Use Frequency: Daily Advance Directives: No Advance Directives Information Provided: Yes service: No Current occupational status: unemployed <KRISTOPHER Ryan - Last Filed: 07/01/22 15:01> Physical Exam ED Vital Signs: Vital Signs - 24 hr 07/01/22 15:00 07/01/22 16:22 Temperature 98.1 F Pulse Rate 78 70 Respiratory Rate 16 16 Blood Pressure 130/72 148/69 H Pulse Oximetry 98 98 Oxygen Delivery Method Room Air Room Air BMI result Body Mass Index 26.4 <KRISTOPHER Ryan - Last Filed: 07/01/22 15:01> Vital Signs - 24 hr 07/01/22 15:00 07/01/22 16:22 Temperature 98.1 F Pulse Rate 78 70 Respiratory Rate 16 16 Blood Pressure 130/72 148/69 H Pulse Oximetry 98 98 Oxygen Delivery Method Room Air Room Air BMI result Body Mass Index 26.4 <Vira Oden NP - Last Filed: 07/01/22 16:50> Const General: cooperative, healthy appearing, comfortable and no acute distress <Vira Oden NP - Last Filed: 07/01/22 16:50> Orientation/consciousness: patient oriented x3 <Vira Oden NP - Last Filed: 07/01/22 16:50> Limitations: no limitations <Vira Oden NP - Last Filed: 07/01/22 16:50> HENMT Other: No trismus Bilateral tonsillar erythema left much greater than right with mild displacement of uvula. Tolerating secretions with no difficulty <Vira Oden NP - Last Filed: 07/01/22 16:50> Head: Yes normal to inspection <Vira Oden [employer] - Last Filed: 07/01/22 16:50> Ears: hearing grossly normal bilaterally <Vira Oden NP - Last Filed: 07/01/22 16:50> General nose exam: Normal external nose present <Vira Oden NP - Last Filed: 07/01/22 16:50> Face and sinus: Yes normal facial exam <Vira Oden NP - Last Filed: 07/01/22 16:50> Mouth: Normal oral and palatal mucosa present <Vira Oden [employer]FA[employer] - Last Filed: 07/01/22 16:50> Eyes General: appearance normal, both eyes and all related structures <Vira Oden [employer]FA[employer]ING [employer]BER - Last Filed: 07/01/22 16:50> Pupils: Equal, round and reactive pupils present <Vira Oden [employer]FA[employer]ING [employer]BER - Last Filed: 07/01/22 16:50> Neck Neck: Yes normal visual inspection, Yes full ROM, Yes no lymphadenopathy and Yes no meningeal signs <Vira Oden [employer]FA[employer]ING [employer]BER - Last Filed: 07/01/22 16:50> Chest Chest palpation & inspection: normal inspection of the chest <Vira Oden NP - Last Filed: 07/01/22 16:50> Cardio Rate: regular rate <Vira Oden NP - Last Filed: 07/01/22 16:50> Rhythm: regular rhythm <Vira Oden [employer]FA[employer]BER - Last Filed: 07/01/22 16:50> Peripheral pulses: Peripheral pulses 2+ throughout <Vira Oden [employer]UFA[employer]ING [employer]BER - Last Filed: 07/01/22 16:50> GI Inspection: Yes normal to inspection <Vira Oden [employer]UFA[employer]ING [employer]BER - Last Filed: 07/01/22 16:50> Palpation (GI): Soft to palpation and nontender <Vira Oden [employer]FA[employer]ING [employer]BER - Last Filed: 07/01/22 16:50> General: Yes no CVA tenderness <Vira Oden [employer]UFA[employer]URING [employer]BER - Last Filed: 07/01/22 16:50> Back/Spine/Pelvis Back: no CVA tenderness <Vira Oden, MANUFA[employer]URING [employer]BER - Last Filed: 07/01/22 16:50> Thoracic/Lumbar Spine: thoracic and lumbar spine normal to inspection <Vira Oden [employer]UFA[employer]ING [employer]BER - Last Filed: 07/01/22 16:50> Skin General skin exam: no rashes or lesions noted <Vira Oden [employer]UFA[employer]ING [employer]BER - Last Filed: 07/01/22 16:50> Neuro General: patient oriented x3, moves all extremities and no meningeal signs <Vira Oden [employer]UFA[employer]URING [employer]BER - Last Filed: 07/01/22 16:50> Cranial nerves: Yes Equal, round and reactive pupils present <Vira Oden [employer]UFA[employer]ING [employer]BER - Last Filed: 07/01/22 16:50> Cognition (Neuro): normal cognition <Vira Oden [employer]UFA[employer]URING [employer]BER - Last Filed: 07/01/22 16:50> Gait exam (Neuro): Normal gait present <Vira Oden [employer]UFA[employer]URING TE[employer]BER - Last Filed: 07/01/22 16:50> Extrem General: Yes normal to inspection, Yes no pedal edema and Yes no calf tenderness <Vira Oden [employer]UFA[employer]URING [employer]BER - Last Filed: 07/01/22 16:50> Course Course Course Narrative: This is an RME: Additional HPI, ROS, PE not included below will be deferred to primary provider. 26-year-old male with history of tobacco smoking who presents to the ER with complaints of 4 days of sore throat, was just seen here today told he had pharyngitis plan was for hospital admission but patient left AMA PE tonsillar swelling, left worse than right. Posterior pharynx erythematous, with exudate to bilateral tonsils and edema. Uvula midline. Controlling secretions well and speaking full sentences Plan sent back to the waiting room patient had laboratory studies done just prior to arrival as he left against medical advice. No need to repeat labs patient will likely be admitted to the hospital <KRISTOPHER Ryan - Last Filed: 07/01/22 15:01> Medical Decision Making Medical Decision Making [facility] Narrative: 26-year-old male here with left-sided sore throat after eloping from the emergency room after he was evaluated and planned to be admitted. Patient with no additional concerns. Patient willing to be admitted. Nursing to place IV and will notify medicine that patient is here so they may place ordered <Vira Oden NP - Last Filed: 07/01/22 16:50> Differential Diagnosis Differential Diagnoses: The differential diagnosis associated with the presentation includes <Vira Oden NP - Last Filed: 07/01/22 16:50> Pharyngitis <Vira Oden NP - Last Filed: 07/01/22 16:50> Consult Healthcare Provider Management of the patient was discussed with: Hospitalist <Vira Oden NP - Last Filed: 07/01/22 16:50> Medicine is aware they will need to put orders in on this patient for admission. <Vira Oden NP - Last Filed: 07/01/22 16:50> Lab Data [facility] Lab Attestation statement: I reviewed the patient's lab results. <Vira Oden NP - Last Filed: 07/01/22 16:50> Discharge Plan Discharge Clinical Impression: Pharyngitis <KRISTOPHER Ryan - Last Filed: 07/01/22 15:01> Patient Disposition: Admitted As Inpatient <KRISTOPHER Ryan - Last Filed: 07/01/22 15:01>
[2022-07-01 15:00] VITALS: BP 130/72; PULSE 78; RESP 16; TEMP 36.7; O2SAT 98; BMI 26.4
[2022-07-01 16:22] VITALS: BP 148/69; PULSE 70; RESP 16; O2SAT 98
--- NOTE | 2022-07-01 16:38 | P.HPHOSP_ITS ---
Please disregard this H&P as patient left AMA History of Present Illness Date of Service: 07/01/22 Attending physician on admission: Eric Moreno Chief Complaint: Sore throat, difficulty swallowing This is a 26-year-old male with a past medical history as noted below presented to the emergency department complaints of a sore throat ongoing for the past 4 days.? Patient was seen here on 06/29/2022 for similar symptoms and had a strep test performed which was negative.? He has diagnosis of pharyngitis and sent home on amoxicillin.? Patient reported to ED provider that he has taken 2 doses of the antibiotics however last night he developed a fever and reports worsening difficulty swallowing and sore throat. Patient initially left AMA from the emergency department after being admitted however he came back for readmission. He reports an emergency and wants stay in the hospital for treatment. CT soft tissue neck with IV contrast:Enlargement and hypodensity of the left palatine tonsil with extensive mucosal edema extending throughout the left pharynx and involving the epiglottis and left aryepiglottic fold. Rightward deviation of the oropharyngeal airway which is mildly narrowed No discrete rim- enhancing fluid density collection is identified to suggest a drainable tonsillar or peritonsillar abscess. Hypodensity within the left palatine tonsil may reflect edema and/or phlegmon/developing abscess. 2.? 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 Initial laboratory results:? WBC is 18.5, CMP mainly unremarkable with exception of total bilirubin 1.1 however direct bili 0.3. In the emergency department the above was performed and patient received 1 L NS, 10 mg IVP Decadron, 30 mg IVP ketorolac and 600 mg clindamycin. The decision was made to admit patient for medical management. Review of Systems Review of Systems: A complete 12 point review of systems was performed and are negative if not noted in HPI. [facility] Medical History Cigarette smoker one half pack a day or less COVID-19 vaccination refused Excessive daytime sleepiness Excessive sleepiness while driving History of COVID-19 Snoring Family History Father Substance use disorder HTN (hypertension) Paternal Grandfather Throat cancer Social History Household Members: Family Housing: Apartment Do you presently have visiting nurse or other home services: No Alcohol intake: former Patient Tobacco Use Status: Current everyday Tobacco user Tobacco use type: Cigarette Cigarette Packs Per Day: 0.5 Cigarettes Per Day: 10.0 Years Smoked: 12 Use of substances other than those prescribed or required for medical reasons: Yes Substance Use Type: Marijuana Substance Use Frequency: Daily Advance Directives: No Advance Directives Information Provided: Yes service: No Current occupational status: unemployed Meds Allergies Allergy/AdvReac Type Severity Reaction Status Date / Time No Known Allergies Allergy Verified 02/06/21 22:53 [No Known Allergies*] Physical Exam Vital Signs and Narrative: Vital Signs: Last Vital Signs Temp 98.1 F 07/01/22 15:00 Pulse 70 07/01/22 16:22 Resp 16 07/01/22 16:22 BP 148/69 H 07/01/22 16:22 Pulse Ox 98 07/01/22 16:22 O2 Del Method Room Air 07/01/22 16:22 BMI result Body Mass Index 26.4 Const: Other: General: Appears stated age, in no acute distress, answers questions accurately and appropriately. Able to speak in full sentences. Mouth: No drooling noted, patient's tonsils are 3+, erythema and edema noted to the uvula, no abscess noted Skin: Warm and well perfused, no obvious lesions, bruises, open wounds or sores Cardiology: Regular rate and rhythm, no murmurs, rubs, gallops or clicks, no JVD or carotid bruits appreciated Respiratory: Lungs CTAB, no inspiratory wheezing, rales or rhonchi, no increased accessory muscle use noted, no respiratory distress, good air movement. Abdomen: Soft, non distended, nontender, bowel sounds active in all 4 quadrants, no abdominal guarding or Salmon sign Extremity: No pitting edema noted, no redness, tenderness or swelling noted to bilateral lower extremities. Neuro: Alert and oriented x3, no obvious focal deficits Psych: Calm, appropriate, follows commands, no agitation restlessness noted Results Imaging Radiologist's Impressions: [address] [address] [address] Scan Report Signed Patient: Ronaldo Schwab MR#: [id number] : 1995 Acct:[id number] Age/Sex: 26 / M ADM Date: 07/01/22 Loc: .ED Attending Dr: Ordering Physician: Vira Corbett NP Date of Service: 07/01/22 Procedure(s): CT soft tissue neck w IV con Accession Number(s): [id number] cc: Vira Corbett NP~ EXAMINATION: CT SOFT TISSUE NECK WITH CONTRAST CLINICAL INFORMATION: Rule out left peritonsillar abscess? COMPARISON: None.? TECHNIQUE: Following the administration of 60 mL of Omnipaque 350 intravenous contrast, helical imaging was performed in the axial plane with generation of coronal and sagittal reformatted images. This CT examination was performed using dose optimization techniques as appropriate, variously including the following: *Automated exposure control. *Adjustment of mA and/or kV according to patient size (this includes techniques or standardized protocols for targeted exams where dose is matched to indication/reason for exam; i.e. extremities or head). *Use of iterative reconstruction technique. DLP: 695.86 mGy-cm mGy-cm. FINDINGS: Nasopharynx/skull base: The fat planes of the skull base and soft tissues of the nasopharynx are unremarkable. The paranasal sinuses and mastoid air cells are well aerated. The temporomandibular joints are normal. Suprahyoid neck: The oral cavity and bilateral salivary gland tissues are unremarkable. There is enlargement and hypodensity of the superior left palatine tonsil with edema extending to involve the left lateral nasopharyngeal wall, left lateral oropharyngeal wall, epiglottis, and left aryepiglottic fold with effacement of the left piriform sinus. There is rightward deviation of the oropharyngeal airway which is mildly narrowed. No discrete rim-enhancing fluid density collection is identified to suggest a well-formed tonsillar or peritonsillar abscess. Infrahyoid neck: The hypopharynx and larynx are unremarkable. There is a subcentimeter collection of gas along the right tracheoesophageal groove at the level of thoracic inlet, likely representing a tracheal diverticulum. No aerodigestive tract mass. Thyroid: The thyroid gland is normal. Lymph nodes: There is no cervical chain lymphadenopathy. Prominent but nonpathologically enlarged bilateral cervical lymph nodes are likely reactive. Lung apices: The partially visualized lung apices are clear. Vascular structures: No hemodynamically significant stenosis, dissection, or occlusion. Osseous structures: The osseous structures are intact without suspicious focal lesion. Mild degenerative disc disease with endplate osteophytosis at multiple levels, most notably C6-C7. Other: The imaged portions of the brain parenchyma are unremarkable. CT/CT soft tissue neck w IV con IMPRESSION: ? 1.? Enlargement and hypodensity of the left palatine tonsil with extensive mucosal edema extending throughout the left pharynx and involving the epiglottis and left aryepiglottic fold. Rightward deviation of the oropharyngeal airway which is mildly narrowed. No discrete rim-enhancing fluid density collection is identified to suggest a drainable tonsillar or peritonsillar abscess. Hypodensity within the left palatine tonsil may reflect edema and/or phlegmon/developing abscess. ? 2.? 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 Assessment and Plan (1) Peritonsillar abscess: Status: Acute (2) Pharyngitis: Status: Acute Plan ACUTE ISSUES: Peritonsillar abscess Pharyngitis -26-year-old male admitted with pharyngitis, concerns for developing peritonsillar abscess. -. Soft tissue neck CT:? Enlargement and hypodensity of the left palatine tonsil with extensive mucosal edema extending throughout the left pharynx and involving the epiglottis and left aryepiglottic fold. Rightward deviation of the oropharyngeal airway which is mildly narrowed. No discrete rim-enhancing fluid density collection is identified to suggest a drainable tonsillar or peritonsillar abscess. Hypodensity within the left palatine tonsil may reflect edema and/or phlegmon/developing abscess. 2.? 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 - ED consulted ENT Dr. Rangel(on-call ENT for [facility]) who? recommended continue IV fluids, antibiotics, Decadron and supportive care. - There is no drainable abscess on CT so there is no current role for ENT intervention - Continue clindamycin 900 mg q.8 hours, Decadron 10 mg IVP q.d., liquid diet, analgesics, antiemetics antipyretics and sore throat lozenge CHRONIC LONGSTANDING ISSUES: Tobacco use-patient educated on importance of abstaining/confirmed nicotine use.? NRT was offered however he declined. Patient is a full code Emergency cerson to contact is patient's significant other Lovely García, Time Spent With Patient Time Spent With Patient Time: Total time managing care of this patient today ____ minutes. Quality Stroke Does the patient have a stroke diagnosis?: No VTE Prior VTE?: No VTE Risk Level:: Medical - moderate - high VTE Device Contraindication: N/A - Device Ordered VTE Drug Contraindication: N/A - Med Ordered
[2022-07-01] MEDS: Clindamycin Phosphate/D5W 900 MG/50 ML PIGGYBACK 50 MG IV (17:48)
== END 2022-07-01 16:55 | disposition left against medical advice (07) ==
PROVIDERS: Emergency Provider Emergency Medicine
DX: J02.9 Acute pharyngitis, unspecified (principal); F17.210 Nicotine dependence, cigarettes, uncomplicated; F12.90 Cannabis use, unspecified, uncomplicated
CPT/HCPCS: 99284

== ENCOUNTER 2023-06-03 21:07 | Emergency (ER) | payer SELFPAY ==
[2023-06-03 21:44] VITALS: BP 124/69; PULSE 86; RESP 18; TEMP 36.8; O2SAT 98; BMI 25.8
[2023-06-03 23:53] LABS: IDNOW Serial# 08D9AD1C; Strep A Nucleic Acid Positive (Negative)
[2023-06-04 00:04] LABS: COVID-19 Test Negative (Negative); IDNOW Serial# 152EDE1D; IDNOW Serial# 9DB6401D; Influenza A Negative (Negative); Influenza B2 Negative (Negative)
--- NOTE | 2023-06-04 00:25 | ED_ITS ---
HPI - General Adult General Chief complaint: General Medical Stated complaint: throat infection to ear Time Seen by Provider: 06/03/23 23:21 Source: patient Mode of arrival: ambulatory Limitations: no limitations History of Present Illness HPI narrative: 27-year-old male presents to the ED for sore throat and right ear pain. Patient denies any drooling, change in voice, chest pain, shortness of breath, neck swel ling, or inability to swallow solid food/liquid. Related Data Previous Rx's Medication Instructions Recorded clindamycin HCl 300 mg capsule 300 mg PO Q8H #21 caps 07/02/22 prednisone 20 mg tablet 40 mg (2 x 20 mg) PO DAILY #4 tabs 07/02/22 amoxicillin 875 mg-potassium 1 tab PO Q12H 10 days #20 tabs 06/04/23 clavulanate 125 mg tablet naproxen 500 mg tablet 500 mg PO BID PRN pain 7 days #14 06/04/23 tabs Allergies Allergy/AdvReac Type Severity Reaction Status Date / Time No Known Allergies Allergy Verified 06/03/23 21:33 [No Known Allergies*] Review of Systems Review of Systems: SOre throat and ear pain Yes all other systems are reviewed and are negative PMF Past Medical History Medical History Cigarette smoker one half pack a day or less COVID-19 vaccination refused Excessive daytime sleepiness Excessive sleepiness while driving History of COVID-19 Snoring Family History Family History Father Substance use disorder HTN (hypertension) Paternal Grandfather Throat cancer Social History Social History Household Members: Family Housing: Apartment Do you presently have visiting nurse or other home services: No Alcohol intake: former Patient Tobacco Use Status: Current everyday Tobacco user Tobacco use type: Cigarette Cigarette Packs Per Day: 0.5 Cigarettes Per Day: 10.0 Years Smoked: 12 Substance Use Type: Marijuana Advance Directives: No Advance Directives Information Provided: No service: No Current occupational status: unemployed Physical Exam ED Vital Signs: Vital Signs - 24 hr 06/03/23 21:44 Temperature 98.3 F Pulse Rate 86 Respiratory Rate 18 Blood Pressure 124/69 Pulse Oximetry 98 Oxygen Delivery Method Room Air BMI result Body Mass Index 25.8 Const General: cooperative, healthy appearing, comfortable, no acute distress, well developed, alert and awake Orientation/consciousness: oriented to person, oriented to place, oriented to time and patient oriented x3 HENMT Other: Negative for signs of peritonsillar abscess Head: Yes normal to inspection, Yes No palpable skull fracture present, Yes normocephalic, Yes atraumatic and No abrasion Ears: hearing grossly normal bilaterally, external ears normal, TM's normal bilaterally, TM normal on the right, TM normal on the left, EAC's normal, mastoids normal and no periauricular adenopathy Throat: Yes posterior oropharynx normal, Yes tonsils normal and Yes uvula m idline Eyes General: appearance normal, both eyes and all related structures Neck Neck: Yes normal visual inspection, Yes full ROM, Yes no lymphadenopathy, Yes no meningeal signs, Yes trachea midline, Yes supple, No anterior neck swelling and No tender Chest Chest palpation & inspection: normal inspection of the chest and normal palpation of entire chest wall Resp Effort & Inspection: normal respiratory effort and able to speak in complete sentences Auscultation: clear to auscultation bilaterally Cardio Jugular venous distension: no JVD Heart sounds: S1 normal heart sound present and S2 normal heart sound present GI Inspection: Yes normal to inspection Palpation (GI): Soft to palpation, not firm, nontender, no guarding and not rigid General: No CVA tenderness and Yes no CVA tenderness Back/Spine/Pelvis Back: no CVA tenderness, No CVA tenderness and No back tenderness Skin General skin exam: no rashes or lesions noted, elasticity normal and turgor normal Neuro General: oriented to person, oriented to place, oriented to time, patient oriented x3, gait normal, tone normal, moves all extremities, Normal light touch and pain sensation, no meningeal signs, no focal motor deficits, CN's II-XI intact bilaterally and normal sensation to monofilament Extrem General: Yes normal to inspection and Yes full ROM Psych Appearance: grossly normal, well kempt and not disheveled Medical Decision Making Medical Decision Making MDM Narrative: 27-year-old male presents to ED for sore throat and right ear pain. Patient positive for strep. COVID influenza negative. Negative for signs of peritonsillar abscess, Brandt's angina, or retropharyngeal abscess. Patient is safe for discharge Differential Diagnosis Differential Diagnoses: The differential diagnosis associated with the pr esentation includes (Strep COVID influenza) Admission/Observation Consideration of admission/observation: Escalation of care including admission/observation considered Lab Data MDM Lab Attestation statement: I reviewed the patient's lab results. Labs: Lab Results 06/03/23 Range/Units 23:43 COVID-19 (KAYLYNN) Negative (Negative) COVID-19 Clin Com See Note Influenza Type A ([facility]I) Negative (Negative) Influenza Type B ([facility]ANTI) Negative (Negative) Influenza A & B Note See Note S. pyogenes GrpA [facility]I Positive A (Negative) External Record Review External record reviewed: Other (Prior visit) Prescription Management I considered prescription management with: Pain Medication and Antibiotic Discharge Plan Discharge Clinical Impression: Strep throat Patient Disposition: Home, Self-Care Instructions: Strep Throat (ED) Additional Instructions: Recommend follow-up with primary care provider. Return to the ED immediately for any drooling, change in voice, inability tolerate solid food/liquid, neck swelling, chest pain, shortness of breath, or any other concerning symptoms. Prescriptions: New amoxicillin-pot clavulanate 875-125 mg tablet 1 tab PO Q12H 10 Days Qty: 20 0RF naproxen 500 mg tablet 500 mg PO BID PRN (Reason: pain) 7 Days Qty: 14 0RF No Action prednisone 20 mg tablet 40 mg PO DAILY Qty: 4 0RF clindamycin HCl 300 mg capsule 300 mg PO Q8H Qty: 21 0RF Interventions: ED Discharge Assessment Last Done: 06/04/23 01:12 Discharge Date/Time: 06/04/23 01:13 Print Language: Setswana
== END 2023-06-04 01:13 | disposition home or self-care (01) ==
LOC: HO.ED 06-04 00:54
PROVIDERS: Physician Assistant; Emergency Provider Internal Medicine
DX: J02.0 Streptococcal pharyngitis (principal); Z11.52 Encounter for screening for COVID-19
CPT/HCPCS: 87502; 87635; 87651; 99282; 99283